=== PATIENT | female | born 1945 | race Caucasian/White ===

== ENCOUNTER → 2023-08-21 11:00 | Outpatient (REF) | payer MEDICARE, BC, SELFPAY | LOC: HWRAD 11:00 | PROVIDERS: ATTENDING PHYSICIAN Nurse Practitioner Adult Health; FAMILY PHYSICIAN Internal Medicine | DX: J47.9 Bronchiectasis, uncomplicated (principal) | CPT/HCPCS: 71250 ==

== ENCOUNTER 2024-04-27 13:09 | Inpatient (IN) | payer MEDICARE, BC, SELFPAY ==
[2024-04-27] VITALS (11 sets, daily range): BP systolic 118–152; BP diastolic 52–68; BMI 32.9
--- NOTE | 2024-04-27 08:16 | ED.GENMED ---
History of Present Illness
General
Chief Complaint: Fall
Time Seen by Provider: 04/27/24 08:15
History of Present Illness
History of Present Illness:
TIME OF INITIAL ENCOUNTER:
HPI: Patient came in by ambulance.
EXAM:
NUMBER AND COMPLEXITY OF PROBLEMS ADDRESSED AT THE ENCOUNTER
� Chronic conditions affecting care: CAD/SD, asthma, hypothyroidism, anxiety/depression
� Acute Exacerbation and/or Progression of Chronic Illness:
� Differential Diagnosis includes:
AMOUNT AND/OR COMPLEXITY OF DATA TO BE REVIEWED AND ANALYZED
� I performed an independent evaluation of and my interpretation is:
EKG:
CT:
X-rays:
Laboratory Studies:
Other:
� Review of other/old records:
� Clinical information was obtained by an independent historian:
� Prescriptions/Medications Considered but not given:
� Further testing considered but not performed:
RISK OF COMPLICATIONS AND/OR MORBIDITY OR MORTALITY OF PATIENT MANAGEMENT
� Social determinants of health affecting care:
� Discussion with other providers:
� Escalation of care including admission/observation vs risk of discharge considered:
ANY OTHER UPDATES:
Past History
Past History
ED Past Medical History: None
ED Past Surgical History: None
Social History
Tobacco: Non-smoker
Alcohol: None
Drug: None
Personal:
Living: with family
Employment: Retired
Family History
Family History: Other
ED Attending Note
-
Portions of this chart may have been created with voice recognition software.� Occasional wrong word or��sound alike� substitutions may have occurred due to the inherent limitations of voice recognition software.
Discharge Plan
Departure
Prescriptions:
No Action
venlafaxine 75 MG capsule,extended release 24hr
75 mg PO DAILY
cetirizine 10 MG tablet
10 mg PO HS
calcium carbonate 600 MG tablet
600 mg PO DAILY@1500
alprazolam 0.25 MG tablet
0.25 mg PO DAILYPRN PRN (Reason: anxiety)
tacrolimus [Protopic] 100 GM ointment
100 gm transdermal DAILY
Patient Comments:
applies to face daily for rosacea
aspirin 81 MG tablet,chewable
81 mg PO DAILY
montelukast 10 MG tablet
10 mg PO HS
levothyroxine 200 MCG tablet
200 mcg PO DAILY
fluticasone propionate 1 SPRAY spray,suspension
1 spray intranasal DAILY
metronidazole 1 APPLIC gel
1 applic topical DAILY
Patient Comments:
apply to face daily for rosacea
fluticasone propionate [Flovent HFA] 1 PUFF HFA aerosol inhaler
2 puff inhalation DAILY
cyclosporine [Restasis] 10 DROPS dropperette
1 drp ophthalmic (eye) BID
eszopiclone [Lunesta] 3 MG tablet
3 mg PO HS
ipratropium bromide [Atrovent HFA] 1 PUFF HFA aerosol inhaler
1 puff inhalation DAILYPRN PRN (Reason: wheezing, dyspnea)
cholecalciferol (vitamin D3) 2,000 UNIT tablet
2,000 unit PO DAILY@1500
qbvqbbvuuspu-wgxv-ovapd acid [Centrum Women] 1 EACH tablet
1 ea PO DAILY
omega 0-uln-tfd-fish oil [Fish Oil] 1 EACH capsule
1 ea PO DAILY@1500
vit C,D-Dc-riczh-lutein-zeaxan [PreserVision AREDS-2] 1 EACH capsule
1 ea PO BID
guaifenesin [Mucus Relief ER] 600 MG tablet extended release 12hr
600 mg PO Q12H
eszopiclone [Lunesta] 3 MG tablet
3 mg PO PRN PRN (Reason: sleep)
docusate sodium [Colace] 100 MG capsule
100 mg PO TID
atorvastatin 80 MG tablet
80 mg PO QPM Qty: 30 3RF
metoprolol succinate 25 MG tablet extended release 24 hr
25 mg PO DAILY Qty: 30 3RF
lisinopril 2.5 MG tablet
2.5 mg PO DAILY Qty: 30 3RF
ticagrelor [Brilinta] 90 MG tablet
90 mg PO BID Qty: 60 3RF
esomeprazole magnesium [Nexium] 40 MG capsule,delayed release(DR/EC)
40 mg PO DAILY Qty: 1 0RF
Discharge Date and Time
Print Language: TURKMEN
--- NOTE | 2024-04-27 08:25 | ED.GENMED ---
History of Present Illness
<Julia Pepe PA-C - Last Filed: 04/27/24 11:39>
General
Chief Complaint: Fall
Source: patient and ambulance crew
Time Seen by Provider: 04/27/24 08:15
History of Present Illness
History of Present Illness:
79yoF with a history of coronary artery disease s/p PCI, type 2 diabetes, hypertension, hyperlipidemia, and hypothyroidism presenting via EMS for evaluation after a fall. Patient was reportedly being over to try to change her depends when she fell.
She was unable to get up after the fall and was laying prone for about 6 hours before woke up and called EMS. Patient has no complaints at this time and denies any pain. She is currently taking doxycycline for bronchitis. She reports having
an ongoing cough for about 3 months. She uses a cane for ambulation and lives at home with . This is the 3rd time in the past 2 weeks that EMS has been called due to a fall. Patient also had a fall last night but she was not transported to
the hospital.
Past History
<Julia Pepe PA-C - Last Filed: 04/27/24 11:39>
Past History
ED Past Medical History: None
ED Past Surgical History: None
Social History
Tobacco: Non-smoker
Alcohol: None
Drug: None
Personal:
Living: with family
Employment: Retired
Family History
Family History: Other
Phy Exam
<Julia Pepe PA-C - Last Filed: 04/27/24 11:39>
General Physical Exam
General Presentation: no apparent distress
General age: appears stated age
General Skin: warm and dry
General Habitus: normal
General Mental: alert
General Hydration: dry mucous membranes
ENT Exam
ENT Exam: normocephalic
Additional ENT: Erythema/mild skin breakdown noted to bilateral cheeks
Eye Exam
Eye Exam: PERRL
Cardiovascular Exam
Cardiovascular Exam: regular rate/rhythm and no murmur
Pulmonary Exam
Pulmonary Exam: no respiratory distress and other (Rales noted to R lung base)
Gastrointestinal Exam
Gastrointestinal Exam: non tender, soft and non distended
Neurological Exam
Neurological Exam: alert and other (Oriented to person, place, and time.)
Alise Coma Scale
Eye Opening: Spontaneous
Verbal Response: Oriented
Motor Response: Obeys Commands
GCS Total Score: 15
Musculoskeletal Exam
Musculoskeletal Exam: other (Areas of ecchymosis noted to bilateral lower legs. There is a localized area of blanchable erythema to the anterior R thigh consistent with mild pressure wound.)
Skin Exam
Skin Exam: warm/dry and other (Extremities cool to touch. 2+ DP pulses bilaterally.)
Psychiatric Exam
Psychiatric Exam: normal mood/affect
<Paulo Foley DO - Last Filed: 04/27/24 08:45>
Alise Coma Scale
GCS Total Score: 15
Course
<Julia Pepe PA-C - Last Filed: 04/27/24 11:39>
Orders/Labs/Results
Orders:
Orders
04/27/24 08:17
Electrocardiogram (*1) Urgent
Reason for Study: Fatigue / Weakness
EKG- Treatment ONCE
04/27/24 08:23
CT Cervical Spine W/o Iv Contr Urgent
Comment:
Reason For Exam: unwitnessed fall
04/27/24 08:24
CT Head W/o Iv Contrast Urgent
Comment:
Reason For Exam: unwitnessed fall
CR Chest - 2 Views Urgent
Comment:
Reason For Exam: Cough, being treated for bronchitis
04/27/24 08:31
CR Femur - Left Min 2 Vw Urgent
Comment:
Reason For Exam: leg pain, fall
Pelvis, 1 or 2 Views CR [CR Pelvis - 1 Or 2 Views ] Urgent
Comment:
Reason For Exam: L hip pain
04/27/24 08:39
0.9% Sodium Chloride 500 ml [Nss] 500 ml IV BOLUS
04/27/24 08:47
COVID-19 Antigen Urgent
Source: Nasal Swab
Complete Blood Count/With Diff Urgent
Troponin I Urgent
Influenza A+B Rapid Molecular Urgent
JONAH Source: Nasal Swab
Specimen Description:
04/27/24 09:25
Comprehensive Metabolic Panel Urgent
Creatine Phosphokinase Urgent
04/27/24 09:45
Influenza A+B Rapid Molecular Routine
JONAH Source: [facility]
Specimen Description:
04/27/24 09:53
Urinalysis Reflex To Culture Urgent
Date Specimen was Collected: 04/27/24
Time Specimen was Collected: 09:47
Urine Microscopic Reflex Cult Urgent
Urine Culture Urgent
JONAH Source: U
Specimen Description:
Date Specimen was Collected: 04/27/24
Time Specimen was Collected: 09:47
04/27/24 10:23
Lactate Level [Lactic Acid] Urgent
Blood Culture Q30M
JONAH Source: Blood/Venous
Specimen Description:
04/27/24 10:27
Blood Culture Q30M
JONAH Source: Blood/Venous
Specimen Description:
04/27/24 10:40
CefTRIAXone [Rocephin] 2,000 mg IV NOW STA
04/27/24 10:58
Sterile Water [Sterile Water For Injection] 10 ml .ROUTE .STK-MED ONE
Abnormal Lab Results
04/27/24 04/27/24 04/27/24
08:47 09:25 09:53
WBC 31.8 H 10^3/uL
(4.8-10.8)
MCHC 31.4 L g/dL
(33.0-37.0)
Abs Immat Gran (auto) 0.6 H 10^3/uL
(0-0.05)
Absolute Neuts (auto) 28.5 H 10^3/uL
(1.4-6.5)
Absolute Monos (auto) 1.3 H 10^3/uL
(0.1-0.6)
Immature Gran % 1.8 H %
(0-0.5)
Neutrophils % 89.6 H %
(42.2-75.2)
Lymphocytes % 4.2 L %
(20.5-51.1)
Carbon Dioxide 21 L mmol/L
(22-30)
BUN 28 H mg/dl
(7-17)
Creatinine 1.2 H mg/dL
(0.6-1.0)
Glucose 140 H mg/dl
(70-99)
AST 49 H U/L
(14-36)
ALT 48 H U/L
(0-35)
Alkaline Phosphatase 167 H U/L
(38-126)
Creatine Kinase 437 H U/L
(30-135)
Total Protein 6.0 L g/dl
(6.3-8.2)
Albumin 2.7 L g/dl
(3.5-5.0)
Ur Occult Blood Reflex 4+ A
(Negative)
Urine RBC 7-10 A /HPF
(0-2)
Urine Bacteria (Reflex) Moderate A
(Negative)
Urine Albumin (Reflex) 1+ A
(Neg - Trace)
04/27/24 08:47
04/27/24 09:25
Vital Signs
Initial and Last Documented VS:
Initial Vital Signs
Pulse Resp BP Pulse Ox
81 18 121/68 95
12/23/24 08:16 04/27/24 08:16 04/27/24 08:16 04/27/24 08:16
Last Documented Vital Signs
Temp Pulse Resp BP Pulse Ox
97.3 F 75 21 121/68 95
04/27/24 08:59 04/27/24 08:45 04/27/24 08:45 04/27/24 08:16 04/27/24 08:30
<Paulo Chava Foley, DO - Last Filed: 04/27/24 08:45>
Orders/Labs/Results
Orders:
Orders
04/27/24 08:17
Electrocardiogram (*1) Urgent
Reason for Study: Fatigue / Weakness
EKG- Treatment ONCE
04/27/24 08:23
CT Cervical Spine W/o Iv Contr Urgent
Comment:
Reason For Exam: unwitnessed fall
04/27/24 08:24
CT Head W/o Iv Contrast Urgent
Comment:
Reason For Exam: unwitnessed fall
CR Chest - 2 Views Urgent
Comment:
Reason For Exam: Cough, being treated for bronchitis
04/27/24 08:31
CR Femur - Left Min 2 Vw Urgent
Comment:
Reason For Exam: leg pain, fall
Pelvis, 1 or 2 Views CR [CR Pelvis - 1 Or 2 Views ] Urgent
Comment:
Reason For Exam: L hip pain
04/27/24 08:39
0.9% Sodium Chloride 500 ml [Nss] 500 ml IV BOLUS
04/27/24 08:47
COVID-19 Antigen Urgent
Source: Nasal Swab
Complete Blood Count/With Diff Urgent
Troponin I Urgent
Influenza A+B Rapid Molecular Urgent
JONAH Source: Nasal Swab
Specimen Description:
04/27/24 09:25
Comprehensive Metabolic Panel Urgent
Creatine Phosphokinase Urgent
04/27/24 09:45
Influenza A+B Rapid Molecular Routine
JONAH Source: [facility]
Specimen Description:
04/27/24 09:53
Urinalysis Reflex To Culture Urgent
Date Specimen was Collected: 04/27/24
Time Specimen was Collected: 09:47
Urine Microscopic Reflex Cult Urgent
Urine Culture Urgent
JONAH Source: U
Specimen Description:
Date Specimen was Collected: 04/27/24
Time Specimen was Collected: 09:47
04/27/24 10:23
Lactate Level [Lactic Acid] Urgent
Blood Culture Q30M
JONAH Source: Blood/Venous
Specimen Description:
04/27/24 10:27
Blood Culture Q30M
JONAH Source: Blood/Venous
Specimen Description:
04/27/24 10:40
CefTRIAXone [Rocephin] 2,000 mg IV NOW STA
04/27/24 10:58
Sterile Water [Sterile Water For Injection] 10 ml .ROUTE .STK-MED ONE
Abnormal Lab Results
04/27/24 04/27/24 04/27/24
08:47 09:25 09:53
WBC 31.8 H 10^3/uL
(4.8-10.8)
MCHC 31.4 L g/dL
(33.0-37.0)
Abs Immat Gran (auto) 0.6 H 10^3/uL
(0-0.05)
Absolute Neuts (auto) 28.5 H 10^3/uL
(1.4-6.5)
Absolute Monos (auto) 1.3 H 10^3/uL
(0.1-0.6)
Immature Gran % 1.8 H %
(0-0.5)
Neutrophils % 89.6 H %
(42.2-75.2)
Lymphocytes % 4.2 L %
(20.5-51.1)
Carbon Dioxide 21 L mmol/L
(22-30)
BUN 28 H mg/dl
(7-17)
Creatinine 1.2 H mg/dL
(0.6-1.0)
Glucose 140 H mg/dl
(70-99)
AST 49 H U/L
(14-36)
ALT 48 H U/L
(0-35)
Alkaline Phosphatase 167 H U/L
(38-126)
Creatine Kinase 437 H U/L
(30-135)
Total Protein 6.0 L g/dl
(6.3-8.2)
Albumin 2.7 L g/dl
(3.5-5.0)
Ur Occult Blood Reflex 4+ A
(Negative)
Urine RBC 7-10 A /HPF
(0-2)
Urine Bacteria (Reflex) Moderate A
(Negative)
Urine Albumin (Reflex) 1+ A
(Neg - Trace)
04/27/24 08:47
04/27/24 09:25
Vital Signs
Initial and Last Documented VS:
Initial Vital Signs
Pulse Resp BP Pulse Ox
81 18 121/68 95
04/27/24 08:16 04/27/24 08:16 04/27/24 08:16 04/27/24 08:16
Last Documented Vital Signs
Temp Pulse Resp BP Pulse Ox
97.3 F 75 21 121/68 95
04/27/24 08:59 04/27/24 08:45 04/27/24 08:45 04/27/24 08:16 04/27/24 08:30
Martinlt;Julia Pepe PA-C - Last Filed: 04/27/24 11:39>
MDM/Problems Addressed
Differential Diagnosis Includes:
79yoF here after an unwitnessed fall. Fell in the middle of the night and was on the ground for 6 hours per report. In prone position on EMS arrival. Currently on abx for bronchitis. She is afebrile and hemodynamically stable. Mucous membranes are
dry. Erythema/mild skin breakdown noted to bilateral cheeks. Differential diagnosis includes but is not limited to: mechanical fall, ambulatory dysfunction, rhabdomyolysis, failure to thrive, dehydration, pneumonia
Initial ED plan: Check cardiac labs, CK, EKG, UA, COVID/flu swab, CXR, and CT head/cervical spine. Nursing staff reported L thigh pain with repositioning. Will check pelvis and L femur x-rays.
<Julia Pepe PA-C - Last Filed: 04/27/24 11:39>
*EKG
Interpreted by ED Provider?: Yes
EKG Intrepretation Date: 04/27/24
Heart Rate: 75
Rate: normal
Rhythm: sinus
[place]: normal axis
Interval: normal interval
QRS Pattern: normal QRS
Ischemia: non-specific ST changes (ST/T wave changes noted in anterior leads. Appears consistent with prior EKG in 2020.)
*Critical Care Note
Total Time (30-74mins, 75-104mins- exclusive of procedures): Not Applicable
<Julia Pepe PA-C - Last Filed: 04/27/24 11:39>
Update Note
Update Note:
Leukocytosis noted with a WBC of 31.8. Lactate and blood cultures added. Lactate WNL at 1.6. CK mildly elevated at 437. Creatinine 1.2. Mild transaminitis noted. COVID/flu negative. CT head/cervical spine negative for traumatic injuries. RUL
consolidation partially visualized on CT. CXR shows findings suspicious of a small to moderate partially loculated R pleural effusion with underlying atelectasis and pneumonia. IV Rocephin ordered. Patient admitted for fruther management.
ED Attending Note
<Julia Pepe PA-C - Last Filed: 04/27/24 11:39>
-
Portions of this chart may have been created with voice recognition software.� Occasional wrong word or��sound alike� substitutions may have occurred due to the inherent limitations of voice recognition software.
<Paulo Foley, DO - Last Filed: 04/27/24 08:45>
ED Attending Note
Patient seen and examined by attending physician: Yes
I performed the substantive portion of visit, reviewed & personally made and approve the management plan that is documented in note by myself or VINCENT.: Yes
ED Attending Note:
I evaluated patient at bedside. The patient comes in after a fall was on the ground in a prone position for about 6 hours. She does have some skin breakdown to the face but does have underlying rosacea. Will check imaging, labs, also check for
rhabdo.
Discharge Plan
Departure
Patient Disposition: Admit
Date of Disposition: 04/27/24
Time of Disposition: 11:35
Presentation/result/management discussed w/ accepting MD/DO: Hospitalist
Discharge Problem:
Unwitnessed fall, Pneumonia
Prescriptions:
No Action
venlafaxine 75 MG capsule,extended release 24hr
75 mg PO DAILY
cetirizine 10 MG tablet
10 mg PO HS
calcium carbonate 600 MG tablet
600 mg PO DAILY@1500
alprazolam 0.25 MG tablet
0.25 mg PO DAILYPRN PRN (Reason: anxiety)
tacrolimus [Protopic] 100 GM ointment
100 gm transdermal DAILY
Patient Comments:
applies to face daily for rosacea
aspirin 81 MG tablet,chewable
81 mg PO DAILY
montelukast 10 MG tablet
10 mg PO HS
levothyroxine 200 MCG tablet
200 mcg PO DAILY
fluticasone propionate 1 SPRAY spray,suspension
1 spray intranasal DAILY
metronidazole 1 APPLIC gel
1 applic topical DAILY
Patient Comments:
apply to face daily for rosacea
fluticasone propionate [Flovent HFA] 1 PUFF HFA aerosol inhaler
2 puff inhalation DAILY
cyclosporine [Restasis] 10 DROPS dropperette
1 drp ophthalmic (eye) BID
ipratropium bromide [Atrovent HFA] 1 PUFF HFA aerosol inhaler
1 puff inhalation DAILYPRN PRN (Reason: wheezing, dyspnea)
cholecalciferol (vitamin D3) 2,000 UNIT tablet
2,000 unit PO DAILY@1500
totbyejuanld-pmsj-fbwxh acid [Centrum Women] 1 EACH tablet
1 ea PO DAILY
omega 5-tyx-nhp-fish oil [Fish Oil] 1 EACH capsule
1 ea PO DAILY@1500
vit C,V-Hm-wimzw-lutein-zeaxan [PreserVision AREDS-2] 1 EACH capsule
1 ea PO BID
guaifenesin [Mucus Relief ER] 600 MG tablet extended release 12hr
600 mg PO Q12H
eszopiclone [Lunesta] 3 MG tablet
3 mg PO PRN PRN (Reason: sleep)
docusate sodium [Colace] 100 MG capsule
100 mg PO TID
atorvastatin 80 MG tablet
80 mg PO QPM Qty: 30 3RF
metoprolol succinate 25 MG tablet extended release 24 hr
25 mg PO DAILY Qty: 30 3RF
lisinopril 2.5 MG tablet
2.5 mg PO DAILY Qty: 30 3RF
ticagrelor [Brilinta] 90 MG tablet
90 mg PO BID Qty: 60 3RF
esomeprazole magnesium [Nexium] 40 MG capsule,delayed release(DR/EC)
40 mg PO DAILY Qty: 1 0RF
Referrals:
Ann-Marie Razo MD [Family Provider] -
Interventions
Interventions:
*General Assessment Last Done: 04/27/24 08:16
*Neglect/Abuse Screening Last Done: 04/27/24 08:16
*ED COVID-19 Vaccine History Last Done: 04/27/24 08:16
ED-Musculoskeletal Assessment Last Done: 04/27/24 08:16
ED- Neurological Assessment Last Done: 04/27/24 08:16
ED-Skin Assessment Last Done: 04/27/24 08:16
Discharge Date and Time
Print Language: MEXICAN
[2024-04-27] MEDS: NSS 500 IV (08:49)
[2024-04-27 09:16] LABS: COVID-19 Antigen Negative (Negative)
[2024-04-27 09:28] LABS: Troponin I < 0.012 ng/ml
[2024-04-27 09:53] LABS: ALT (SGPT) 48 U/L (0-35); AST (SGOT) 49 U/L (14-36); Albumin 2.7 g/dl (3.5-5.0); Alkaline Phosphatase 167 U/L (38-126); Blood Urea Nitrogen 28 mg/dl (7-17); Calcium 9.1 mg/dl (8.4-10.2); Carbon Dioxide 21 mmol/L (22-30); Chloride 105 mmol/L (98-107); Creatine Phosphokinase 437 U/L (30-135); Estimated Creatinine Clearance 37 ml/min; Glucose 140 mg/dl (70-99); Potassium 3.8 mmol/L (3.5-5.1); Sodium 136 mmol/L (135-145); Total Bilirubin 0.2 mg/dl (0.2-1.3); eGFR 46.62
[2024-04-27 09:55] LABS: % Basophils 0.3 % (0-2); % Eosinophils 0.1 % (0-6); % Immature Granulocytes 1.8 % (0-0.5); % Lymphocytes 4.2 % (20.5-51.1); % Neutrophils 89.6 % (42.2-75.2); Absolute Basophils 0.1 10^3/uL (0-0.2); Absolute Immature Granulocytes 0.6 10^3/uL (0-0.05); Absolute Lymphocytes 1.4 10^3/uL (1.2-3.4); Absolute Monocytes 1.3 10^3/uL (0.1-0.6); Absolute Neutrophils 28.5 10^3/uL (1.4-6.5); Hematocrit 38.5 % (37.0-47.0); Hemoglobin 12.1 g/dL (12.0-16.0); Mean Corp Hgb Conc. 31.4 g/dL (33.0-37.0); Mean Corpuscular Hgb 28.6 pg (27.0-31.0); Nucleated Red Blood Cells % 0 %; Red Blood Cell Count 4.23 10^6/uL (4.20-5.40); Red Cell Dist. Width 14.4 % (11.5-14.5); White Blood Cell Count 31.8 10^3/uL (4.8-10.8)
[2024-04-27 10:03] LABS: Urine Albumin 1+ (Neg - Trace); Urine Bilirubin Negative (Negative); Urine Character Slightly Cloudy (Clear); Urine Color Yellow; Urine Glucose Negative (Negative); Urine Ketone Negative (Negative); Urine Leukocyte Negative (Negative); Urine Nitrite Negative (Negative); Urine Occult Blood 4+ (Negative); Urine Specific Gravity 1.015 (<1.030); Urine Urobilinogen Negative (Neg - 1+)
[2024-04-27 10:16] LABS: Urine Bacteria Moderate (Negative); Urine White Cell 0-2 /HPF (0-5)
[2024-04-27] MEDS: ROCEPHIN 2000 MG IV (10:59)
[2024-04-27 11:08] LABS: Lactic Acid 1.6 mmol/L (0.7-2.0)
--- NOTE | 2024-04-27 13:00 | HPS.HSE ---
Family Physician
-
Family Physician: Ann-Marie Razo
Chief Complaint
-
Cough, weakness, falls
History of Present Illness
79-year-old female here complaining of 3 falls over the past week, 3 months of coughing, generalized weakness.
Reportedly was bending over trying to change her depends when she fell forward. Unable to get up for at least 6 hours when her finally called EMS.
Also fell last night but did not seek help.
Ambulates with a cane at home.
Just started a course of doxycycline 2 days ago for bronchitis.
Medical History
Past Medical History
Past Medical History: Reports Other
Additional Past Medical History:
CAD
Essential hypertension
DM2
Hypothyroidism
Hyperlipidemia
Mild intermittent asthma
Allergic rhinitis
Anxiety disorder
GERD
Rosacea
Skin cancer
Past Surgical History: Reports Other
Additional Past Surgical History:
Skin cancer resection
Social History
Tobacco: Non-smoker
Alcohol: None
Drug: None
Personal:
Living: With Family
Family History
Family History: Not pertinent
Allergies / Home Medications
Allergies reflects when Allergies were last updated in [facility].
Home Medications with original date entered in [facility]
Allergy/Medication List:
Allergies
Allergy/AdvReac Type Severity Reaction Status Date / Time
Sulfa (Sulfonamide Allergy Rash Verified 05/29/19 14:30
Antibiotics)
Home Medications
alprazolam 0.25 mg tablet 0.25 mg PO DAILYPRN PRN anxiety 05/29/19
aspirin 81 mg chewable tablet 81 mg PO DAILY 05/29/19
cholecalciferol (vitamin D3) 50 mcg (2,000 unit) tablet 2,000 unit PO DAILY@1500 05/29/19
eszopiclone 3 mg tablet (Lunesta) 3 mg PO HSPRN PRN sleep 05/29/19
fluticasone propionate 50 mcg/actuation nasal spray,suspension 1 spray intranasal DAILY 05/29/19
guaifenesin 600 mg tablet, extended release 12 hr (Mucus Relief ER) 600 mg PO Q12H 05/29/19
ipratropium bromide 17 mcg/actuation HFA aerosol inhaler (Atrovent HFA) 1 puff inhalation DAILYPRN PRN wheezing, dyspnea 05/29/19
levothyroxine 200 mcg tablet 200 mcg PO DAILY 05/29/19
montelukast 10 mg tablet 10 mg PO HS 05/29/19
multivitamin-ferrous fumarate-folic acid 18 mg-400 mcg tablet (Centrum Women) 1 ea PO DAILY 05/29/19
vit C 250 mg-vit E 90 mg-zinc 40 mg-copper 1 je-fvxxmq-hsgchn capsule (PreserVision AREDS-2) 1 ea PO BID 05/29/19
esomeprazole magnesium 40 mg capsule,delayed release (Nexium) 40 mg PO DAILY ##1 05/30/19
metoprolol succinate 25 mg tablet,extended release 24 hr 25 mg PO DAILY #30 tabs 05/30/19
benzonatate 100 mg capsule 100 mg PO TIDPRN PRN cough 04/27/24
cetirizine 10 mg tablet (Zyrtec) 10 mg PO DAILY 04/27/24
cyclosporine 0.05 % eye drops in a dropperette (Restasis) 1 drp BOTH EYES Q12H 04/27/24
doxycycline hyclate 100 mg capsule 100 mg PO BID 04/27/24
ibuprofen 600 mg tablet 600 mg PO Q6HPRN PRN moderate pain 04/27/24
losartan 100 mg tablet 100 mg PO DAILY 04/27/24
metformin 500 mg tablet,extended release 24 hr 500 mg PO BID 04/27/24
rosuvastatin 40 mg tablet (Crestor) 40 mg PO QPM 04/27/24
tirzepatide 2.5 mg/0.5 mL subcutaneous pen injector (Mounjaro) 2.5 mg SC TU 04/27/24
venlafaxine 150 mg capsule,extended release 24 hr (Effexor XR) 150 mg PO DAILY 04/27/24
Review of Systems
-
History Source: Patient and Family
A 12 point ROS was completed and negative except as noted: Yes
Respiratory: Reports Cough; Denies Trouble Breathing
Physical Exam
Vital Signs
Vital Signs
Temp Pulse Resp BP Pulse Ox
97.3 F 79 25 129/58 70
04/27/24 08:59 04/27/24 12:00 04/27/24 12:00 04/27/24 12:00 04/27/24 09:45
Physical Exam
General: Well Developed, Well Nourished, No Apparent Distress and Comfortable
HEENT: NormoCephalic and Anicteric; No Moist mucous membranes
Respiratory: Clear
Cardiac: S1/S2 and Regular Rhythm
Breast: Deferred by me
GI: Soft, Non Tender and Non Distended
Genito-urinary: Deferred by me
Musculoskeletal: No Clubbing, No Cyanosis and No Edema
Skin: Warm, Dry and Other (Hyperpigmentation of both cheeks, lower extremity bruising)
Neuro: AO x 3
Hematologic/Lymphatic: No Lymphadenopathy
Psych: Calm
Laboratory Results
-
04/27/24 08:47
04/27/24 09:25
Laboratory Results
Lactic Acid 1.6 mmol/L (0.7-2.0) 04/27/24 10:23
Total Bilirubin 0.2 mg/dl (0.2-1.3) 04/27/24 09:25
AST 49 U/L (14-36) H 04/27/24 09:25
ALT 48 U/L (0-35) H 04/27/24 09:25
Alkaline Phosphatase 167 U/L (38-126) H 04/27/24 09:25
Troponin I < 0.012 ng/ml 12/23/24 08:47
Impression/Plan
-
Community-acquired pneumonia -right upper lobe consolidation noted on CT. [facility], [facility]. Check cultures. She is not hypoxic.
Chest x-ray suggestive of moderate loculated right pleural effusion with underlying atelectasis and pneumonia.
Prior CT chest from August of this year suggested a 3 mm nodule in the anterior right upper lobe.
3-month cough is concerning for underlying pulmonary process.
Consult pulmonary.
Influenza and COVID-negative. Blood cultures sent.
Volume depletion -prerenal azotemia noted. IV fluids ordered. Recheck labs in the morning. Hold NSAIDs.
Mild traumatic rhabdomyolysis -down on the ground for quite some time before her found her. CPK 437. IV fluids as above.
Elevated transaminases -unclear etiology. Hold rosuvastatin.
Hypothyroidism -continue Synthroid. Check TSH.
DM2 without hyperglycemia -hold metformin. Check hemoglobin A1c. Low resistance NovoLog scale.
Essential hypertension -stable.
Hyperlipidemia -hold rosuvastatin given elevated LFTs.
Ambulatory dysfunction -anticipate SNF on discharge. Consult PT/OT.
Full code
Updated at the bedside.
--- NOTE | 2024-04-27 15:00 | CON.PUL ---
Consultation
Consultation Request
Date/Time Consultation Requested: 04/27/2024
Date/Time Consultation Performed: 04/27/2024
Requesting Provider: Dr. Arthur
Performing Provider: DR. Kelby Brooks
Reason for Consultation: Pleural effusion
Medical History
-
History of Present Illness:
79-year-old woman with past medical history significant for coronary artery disease, hypertension, type 2 diabetes, hypothyroidism, mild asthma, anxiety, who came to the hospital on 04/27/2024 complaining of falling to the ground 3 times in the last
past week, reports 3 months of coughing, generalized weakness.
Patient unfortunately fell at home and was not able to get up after 6 hours, called EMS.
Usually ambulates with a cane.
About 2 days ago started a course of doxycycline for possible bronchitis. Reports some improvement
She does report some discolored phlegm production without hemoptysis.
Denies any headache but she has been having some ambulatory issues as well as memory issues of unknown etiology.
found her in her room laying facedown after 6 hours. They sleep in separate rooms.
Past Medical History
Past Medical History: Other ( See assessment and plan section)
Social History
Tobacco: Non-smoker
Alcohol: None
Drug: None
Personal:
Living: With Family
Family History
Family History: Reviewed & Not Pertinent
Allergies / Home Medications
Allergies
Allergy/AdvReac Type Severity Reaction Status Date / Time
Sulfa (Sulfonamide Allergy Rash Verified 05/29/19 14:30
Antibiotics)
Home Medications
�Medication �Instructions �Recorded �Confirmed �Last Taken �Type
alprazolam 0.25 mg tablet 0.25 mg PO DAILYPRN PRN anxiety 05/29/19 04/27/24 Unknown History
aspirin 81 mg chewable tablet 81 mg PO DAILY 05/29/19 04/27/24 04/26/24 History
cholecalciferol (vitamin D3) 50 2,000 unit PO DAILY@1500 05/29/19 04/27/24 04/26/24 History
mcg (2,000 unit) tablet
eszopiclone 3 mg tablet (Lunesta) 3 mg PO HSPRN PRN sleep 05/29/19 04/27/24 Unknown History
fluticasone propionate 50 1 spray intranasal DAILY 05/29/19 04/27/24 05/29/19 08:00 History
mcg/actuation nasal
spray,suspension
guaifenesin 600 mg tablet, 600 mg PO Q12H 05/29/19 04/27/24 04/26/24 History
extended release 12 hr (Mucus
Relief ER)
ipratropium bromide 17 1 puff inhalation DAILYPRN PRN 05/29/19 04/27/24 Unknown History
mcg/actuation HFA aerosol inhaler wheezing, dyspnea
(Atrovent HFA)
levothyroxine 200 mcg tablet 200 mcg PO DAILY 05/29/19 04/27/24 04/26/24 History
montelukast 10 mg tablet 10 mg PO HS 05/29/19 04/27/24 04/26/24 History
multivitamin-ferrous 1 ea PO DAILY 05/29/19 04/27/24 04/26/24 History
fumarate-folic acid 18 mg-400 mcg
tablet (Centrum Women)
vit C 250 mg-vit E 90 mg-zinc 40 1 ea PO BID 05/29/19 04/27/24 04/26/24 History
mg-copper 1 [id number]
capsule (PreserVision AREDS-2)
esomeprazole magnesium 40 mg 40 mg PO DAILY ##1 05/30/19 04/27/24 04/26/24 Rx
capsule,delayed release (Nexium)
metoprolol succinate 25 mg 25 mg PO DAILY #30 tabs 05/30/19 04/27/24 04/26/24 Rx
tablet,extended release 24 hr
benzonatate 100 mg capsule 100 mg PO TIDPRN PRN cough 04/27/24 04/27/24 Unknown History
cetirizine 10 mg tablet (Zyrtec) 10 mg PO DAILY 04/27/24 04/27/24 04/26/24 History
cyclosporine 0.05 % eye drops in a 1 drp BOTH EYES Q12H 04/27/24 04/27/24 04/26/24 History
dropperette (Restasis)
doxycycline hyclate 100 mg capsule 100 mg PO BID 04/27/24 04/27/24 04/26/24 History
ibuprofen 600 mg tablet 600 mg PO Q6HPRN PRN moderate pain 04/27/24 04/27/24 Unknown History
losartan 100 mg tablet 100 mg PO DAILY 04/27/24 04/27/24 04/26/24 History
metformin 500 mg tablet,extended 500 mg PO BID 04/27/24 04/27/24 04/26/24 History
release 24 hr
rosuvastatin 40 mg tablet (Crestor) 40 mg PO QPM 04/27/24 04/27/24 04/26/24 History
tirzepatide 2.5 mg/0.5 mL 2.5 mg SC TU 04/27/24 04/27/24 04/21/24 History
subcutaneous pen injector
(Mounjaro)
venlafaxine 150 mg 150 mg PO DAILY 04/27/24 04/27/24 04/26/24 History
capsule,extended release 24 hr
(Effexor XR)
Review of Systems
-
History Source: Patient
All other systems: Negative unless noted
Vitals / Labs / Diagnostic Testing
Vital Signs
Temp Pulse Resp BP Pulse Ox
97.3 F 81 42 130/63 70
04/27/24 08:59 04/27/24 14:30 04/27/24 14:30 04/27/24 14:00 04/27/24 09:45
Lab Data
04/27/24 08:47
04/27/24 09:25
Microbiology
04/27/24 09:45 Nasal Swab Influenza Types A & B (STEVEN) - Final
Negative for Influenza A & B, NAAT
Negative results must be combined with clinical observations
and patient history.
Nucleic Acid Amplification test (NAAT)performed on the
[employer] ID NOW platform.
04/27/24 08:47 Nasal Swab Influenza Types A & B (STEVEN) - Final
Test repeatedly invalid.
Nucleic Acid Amplification test (NAAT)performed on the
[employer] ID NOW platform.
Diagnostic Testing:
Physical Exam
-
HEENT: Normocephalic
Cardiovascular: S1/S2 and Peripheral Edema (None)
Respiratory: Clear and Non-Labored Respirations
GI: Soft and Non Distended
Neurology: Awake, Alert and No Motor Deficits
Skin: Warm
General: Comfortable, Other (Able to speak in full sentences) and Other (Rosacea noted)
Assessment
-
79-year-old woman with past medical history noted, complains of 3 months of coughing. For the last several weeks has fallen several times. Last time patient was not able to stand up for 6 hours. She was brought in by for evaluation
Community-acquired pneumonia-right upper lobe consolidation/pleural effusion on CAT scan of the cervical spine.
Chest x-ray 04/27/2024: Suspected loculated right pleural effusion with possible underlying pneumonia.
No evidence for mass on CAT scan on the right upper lobe 08/2023-l there was apparently a benign-appearing 4 mm lung nodule, ess likely lung mass but cannot rule out 100%.
Leukocytosis
Chronic cough for the last 3 months-unclear etiology
Acute kidney injury-volume depletion
Mild rhabdo after fall
Conditions present prior admission:
Mild intermittent asthma
Singular/albuterol HFA as needed/low-dose Flovent
Follows up at our office Dr. Gore and PEGGY
Mild obstructive sleep apnea-intolerant to CPAP
Weight loss and dental appliance as well as positional therapy recommended
Mild bronchiectasis post pneumonia x 2? Per record
Chronic insomnia
Hypothyroidism
Type 2 diabetes-on Mounjaro
Allergic rhinitis
Anxiety
GERD
Prior skin cancer
3 mm lung nodule on the right upper lobe CAT scan 08/2023
Rosacea
Assessment and plan:
Clinical picture suggestive of pneumonia with leukocytosis and coughing.
States that she took 2 days of doxycycline in the outpatient and was helping.
Afebrile
Not requiring oxygen for mentation
-
Agree with antibiotics to cover for community-acquired pneumonia ceftriaxone/doxycycline
Will obtain ultrasound of the chest and if pleural effusion is amenable for thoracentesis will consult interventional radiology. Order has been placed.
Blood cultures
Sputum culture if able
Speech evaluation (order has been placed)-patient states that she has been having some memory issues. CT head negative for acute abnormalities. May need further evaluation.
She denies any significant swallowing problems or GERD.
-
It is encouraging that in August 2023 there was a tiny 4 mm right upper lobe lung nodule. Not highly suspicious.
Patient is a never smoker
Radiographic follow-up will be needed in the future to document resolution.
-
With history of asthma: Not bronchospastic on exam
Nebulizers as needed
Continue montelukast
Albuterol HFA as needed
Antitussives
-
Type 2 diabetes: Recently placed on Mounjaro due to increased hemoglobin A1c.
-
History of obstructive sleep apnea: Intolerant to CPAP
-
DVT prophylaxis heparin subcu
-
Will continue to follow
-
Dr. Brooks updated at the bedside 04/27/2024.
[2024-04-27 16:29] LABS: TSH 0.02 uIU/ml (0.47-4.68)
[2024-04-27] MEDS: NSS 1000 IV (16:44)
[2024-04-27] MEDS: VITAMIN D3 (cholecalciferol) 50 MCG PO (16:44)
[2024-04-27] MEDS: XANAX 0.25 MG PO (16:54)
[2024-04-27 17:46] LABS: Glucose - Point of Care 120 mg/dl (70-99)
[2024-04-27] MEDS: NOVOLOG FLEXPEN-LOW RESISTANCE SC (17:49)
[2024-04-27] MEDS: HEPARIN 5000 UNITS SC (20:29)
[2024-04-27] MEDS: RESTASIS 0.05% OPHTHALMIC EMULSION 1 DROPS BOTH EYES (20:29)
[2024-04-27] MEDS: VIBRAMYCIN 100 MG PO (20:29)
[2024-04-27] MEDS: MUCINEX 600 MG PO (20:29)
[2024-04-27 21:19] LABS: Glucose - Point of Care 156 mg/dl (70-99)
[2024-04-27] MEDS: TYLENOL 650 MG PO (21:40)
[2024-04-27] MEDS: SINGULAIR 10 MG PO (21:40)
[2024-04-28] MEDS: SYNTHROID 200 MCG PO (05:21)
[2024-04-28 06:00] VITALS: BMI 31.8
[2024-04-28 06:55] LABS: Hemoglobin 11.3 g/dL (12.0-16.0); Mean Corp Hgb Conc. 34.2 g/dL (33.0-37.0); Mean Corpuscular Hgb 29.2 pg (27.0-31.0); Mean Corpuscular Volume 85.3 fL (81.0-99.0); Mean Platelet Volume 9.1 fL (7.4-10.4); Platelet Count 338 10^3/uL (130-400); Red Blood Cell Count 3.87 10^6/uL (4.20-5.40); Red Cell Dist. Width 14.3 % (11.5-14.5); White Blood Cell Count 32.2 10^3/uL (4.8-10.8)
[2024-04-28 07:23] VITALS: BP 140/64
[2024-04-28 07:44] LABS: Glucose - Point of Care 148 mg/dl (70-99)
[2024-04-28 07:53] LABS: % Basophils 0.2 % (0-2); % Eosinophils 0.3 % (0-6); % Immature Granulocytes 0.9 % (0-0.5); % Monocytes 4.5 % (1.7-9.3); % Neutrophils 88.1 % (42.2-75.2); Absolute Basophils 0.1 10^3/uL (0-0.2); Absolute Eosinophils 0.1 10^3/uL (0-0.7); Absolute Immature Granulocytes 0.3 10^3/uL (0-0.05); Absolute Lymphocytes 1.9 10^3/uL (1.2-3.4); Absolute Monocytes 1.5 10^3/uL (0.1-0.6); Absolute Neutrophils 28.3 10^3/uL (1.4-6.5); Nucleated Red Blood Cells % 0 %
[2024-04-28 08:02] LABS: ALT (SGPT) 74 U/L (0-35); AST (SGOT) 93 U/L (14-36); Albumin 2.8 g/dl (3.5-5.0); Alkaline Phosphatase 200 U/L (38-126); Blood Urea Nitrogen 23 mg/dl (7-17); Calcium 9.3 mg/dl (8.4-10.2); Carbon Dioxide 19 mmol/L (22-30); Chloride 105 mmol/L (98-107); Estimated Creatinine Clearance 40 ml/min; Glucose 143 mg/dl (70-99); Potassium 3.4 mmol/L (3.5-5.1); Sodium 137 mmol/L (135-145); Total Bilirubin 0.4 mg/dl (0.2-1.3); Total Protein 6.3 g/dl (6.3-8.2); eGFR 51.75
[2024-04-28] MEDS: NOVOLOG FLEXPEN-LOW RESISTANCE SC (08:26)
[2024-04-28] MEDS: HEPARIN 5000 UNITS SC ×2 (08:39→20:26)
[2024-04-28] MEDS: ZYRTEC 10 MG PO (08:40)
[2024-04-28] MEDS: TOPROL XL 25 MG PO (08:40)
[2024-04-28] MEDS: EFFEXOR XR 150 MG PO (08:40)
[2024-04-28] MEDS: VIBRAMYCIN 100 MG PO ×2 (08:40→20:33)
[2024-04-28] MEDS: LOW STRENGTH ASPIRIN 81 MG PO (08:40)
[2024-04-28] MEDS: MUCINEX 600 MG PO ×2 (08:40→20:26)
[2024-04-28] MEDS: RESTASIS 0.05% OPHTHALMIC EMULSION 1 DROPS BOTH EYES ×2 (08:40→20:25)
[2024-04-28 08:41] LABS: Hepatitis C Antibody Negative (Negative)
--- NOTE | 2024-04-28 09:45 | PTOTSP ---
SPEECH THERAPY SWALLOW EVALUATION:
Patient exhibits grossly functional to mild oropharyngeal dysphagia, likely chronic related to weakness/deconditioning. Patient remains at risk for aspiration and related complications given tenuous respiratory/pulmonary status and history of
asthma/GERD. Patient currently with pneumonia. Not exhibiting any overt signs of aspiration at this time, though unable to exclude aspiration. Recommend continue Regular texture diet, thin liquids. Medications whole with liquid, one at a time.
Aspiration/GERD precautions including: Partial supervision/assistance; Reduce distractions; No talking while eating/drinking; Upright positioning; Small single sips/bites; Slow rate of intake; Take breaks for breathing; Do not eat when short of
breath; Monitor for signs of aspiration; D/c oral diet if any decline in mental/respiratory status. Oral care 3x/day. ST to follow, assess diet tolerance and modify as appropriate, and monitor CXR/labs and determine indication for instrumental
assessment of swallowing if appropriate. Discussed with patient.
RECOMMEND:
1) Regular texture diet, thin liquids
2) Medications whole with liquid, one at a time
3) Aspiration/GERD precautions including: Partial supervision/assistance; Reduce distractions; No talking while eating/drinking; Upright positioning; Small single sips/bites; Slow rate of intake; Take breaks for breathing; Do not eat when short of
breath; Monitor for signs of aspiration; D/c oral diet if any decline in mental/respiratory status
4) Oral care 3x/day
5) ST to follow and determine indication for instrumental assessment of swallowing if appropriate
--- NOTE | 2024-04-28 10:07 | CM ---
Pt seen bedside. Initial assessment completed. Per pt, she experienced 3 falls previously. Currently w/ pneumonia
Pt lives w/ spouse in a single story home-1 step to enter
Pt is independent w/ cane and walker. Pt has grab bars and a shower chair for additional support
Pt states she still drives but only locally. She drives to [employer], the grocery store and when she takes her grandchildren to school sometimes.
Pt denies SNF/VN/PT hx. Pt stated she did engage in OP therapy 10 years ago when she broke her ankle.
Address, point of contact and insurance verified
PCP: Dr. Razo
Pharmacy: [facility]
PT/OT to evaluate, will await recommendations
Plan: Await PT/OT recommendations for d/c planning
[2024-04-28 10:13] LABS: Glycohemoglobin (HgbA1c) 7.3 % (4.0-5.6)
[2024-04-28] MEDS: ROCEPHIN 2000 MG IV (10:19)
[2024-04-28] MEDS: STERILE WATER FOR INJECTION 20 ML IV (10:19)
[2024-04-28 11:05] VITALS: BP 140/69; BP 142/77; PULSE 96; O2SAT 90
[2024-04-28 11:08] VITALS: BP 140/69; BP 142/77; PULSE 97; O2SAT 91
[2024-04-28 11:43] LABS: Glucose - Point of Care 211 mg/dl (70-99)
--- NOTE | 2024-04-28 12:14 | W.PN.HOSP.TC ---
Addendum entered and electronically signed by Jean-Pierre Arthur DO 04/28/24 13:37:
Sepsis due to community-acquired pneumonia -present on admission.
Original Note:
Today's Communication/Plan
-
Thoracentesis
Continue antibiotics
Assessment / Plan
Assessment / Plan
Gen-AAOx3, NAD
HEENT-NC, AT, anicteric, clear oral mm
Neck-supple
CV-reg, no M, +S1/S2
Lungs-clear B/L
Abd-soft, NT, ND
Ext-no edema
Musculoskeletal-no cyanosis, clubbing
Skin-warm and dry
Neuro-grossly non-focal
Psych-calm, cooperative
Community-acquired pneumonia -right upper lobe consolidation noted on CT. Continue antibiotics. Check cultures. She is not hypoxic.
Chest x-ray suggestive of moderate loculated right pleural effusion with underlying atelectasis and pneumonia.
Prior CT chest from August of this year suggested a 3 mm nodule in the anterior right upper lobe.
3-month cough is concerning for underlying pulmonary process.
Influenza and COVID-negative. Blood cultures sent.
Appreciate pulmonary input.
Mild to moderate right pleural effusion -noted on chest ultrasound. IR consulted for thoracentesis.
Volume depletion -prerenal azotemia noted. IV fluids ordered. Creatinine trending down. Hold NSAIDs.
Mild traumatic rhabdomyolysis -down on the ground for quite some time before her found her. CPK 437. IV fluids as above.
Hypokalemia -will replete. Check magnesium.
Elevated transaminases -unclear etiology. Hold rosuvastatin.
Hypothyroidism -continue Synthroid. Check TSH.
DM2 without hyperglycemia -hold metformin. Hemoglobin A1c 7.3%. Low resistance NovoLog scale. Hold Mounjaro and metformin while in the hospital.
Essential hypertension -stable.
Hyperlipidemia -hold rosuvastatin given elevated LFTs.
Ambulatory dysfunction -anticipate SNF on discharge. Continue PT/OT.
Full code
Dispo -will need SNF when medically stable.
Updated at the bedside.
Anticipated Discharge: 24 - 48 hours
Subjective/Interval History
-
Date of Service: April 28, 2024
Patient seen and examined. No complaints. Confused, thinks she is at home.
Objective Data
-
Labs:
Laboratory Results
04/28/24
06:39
WBC 32.2 H
Hgb 11.3 L
Hct 33.0 L
Plt Count 338
Sodium 137
Potassium 3.4 L
Chloride 105
Carbon Dioxide 19 L
BUN 23 H
Creatinine 1.1 H
Glucose 143 H
Calcium 9.3
Total Bilirubin 0.4
AST 93 H
ALT 74 H
Alkaline Phosphatase 200 H
Vital Signs:
Vital Signs
Temp Pulse Resp BP Pulse Ox
97.4 F 84 16 140/64 91
04/28/24 07:23 04/28/24 08:40 04/28/24 07:23 04/28/24 08:40 04/28/24 07:23
I&O
04/27/24 04/28/24 04/29/24
06:59 06:59 06:59
Intake Total 120 / 120
Output Total 550 / 550
Balance -430 / -430
Review of Systems
-
History Source: Patient
All other systems: Reviewed and negative
[2024-04-28 12:50] VITALS: BP 147/76; BP_SYST 90
--- NOTE | 2024-04-28 13:05 | W.PN.PUL3 ---
Today's Communication / Plan
-
Continue current antibiotics for now
Thoracentesis
Follow culture
Assessment
-
79-year-old woman with past medical history noted, complains of 3 months of coughing. For the last several weeks has fallen several times. Last time patient was not able to stand up for 6 hours. She was brought in by for evaluation
Community-acquired pneumonia-right upper lobe consolidation/pleural effusion on CAT scan of the cervical spine.
Chest x-ray 04/27/2024: Suspected loculated right pleural effusion with possible underlying pneumonia.
No evidence for mass on CAT scan on the right upper lobe 08/2023-l there was apparently a benign-appearing 4 mm lung nodule, ess likely lung mass but cannot rule out 100%.
Leukocytosis
Chronic cough for the last 3 months-unclear etiology
Acute kidney injury-volume depletion
Mild rhabdo after fall
Conditions present prior admission:
Mild intermittent asthma
Singular/albuterol HFA as needed/low-dose Flovent
Follows up at our office Dr. Gore and PEGGY
Mild obstructive sleep apnea-intolerant to CPAP
Weight loss and dental appliance as well as positional therapy recommended
Mild bronchiectasis post pneumonia x 2? Per record
Chronic insomnia
Hypothyroidism
Type 2 diabetes-on Mounjaro
Allergic rhinitis
Anxiety
GERD
Prior skin cancer
3 mm lung nodule on the right upper lobe CAT scan 08/2023
Rosacea
Assessment and plan:
Clinical picture suggestive of pneumonia with leukocytosis and coughing.
States that she took 2 days of doxycycline in the outpatient and was helping.
Afebrile remains afebrile, leukocytosis elevated at 32,000.
Not requiring oxygen for mentation
-
Agree with antibiotics to cover for community-acquired pneumonia ceftriaxone/doxycycline-may need to cover anaerobes if there is empyema.
Right-sided ultrasound noted: Mild to moderate pleural effusion.
Consulted Dr. Burris from to perform thoracentesis today 04/28/2024.
Orders placed to send for: Cell count, cultures, cytology, LDH, total protein etc.
Blood cultures-Pending
Sputum culture if able-pending.
Eventual CT chest once thoracentesis performed in the next 24 to 48 hours.
Speech evaluation-patient states that she has been having some memory issues. CT head negative for acute abnormalities.
Correspondence reviewed. Regular texture diet with thin liquids. Aspiration precautions recommended. No evidence for overt aspiration.
She denies any significant swallowing problems or GERD.
-
It is encouraging that in August 2023 there was a tiny 4 mm right upper lobe lung nodule. Not highly suspicious.
Patient is a never smoker
Radiographic follow-up will be needed in the future to document resolution.
-
With history of asthma: Not bronchospastic on exam
Nebulizers as needed
Continue montelukast
Albuterol HFA as needed
Antitussives
-
Type 2 diabetes: Recently placed on Mounjaro due to increased hemoglobin A1c.
-
History of obstructive sleep apnea: Intolerant to CPAP
-
DVT prophylaxis heparin subcu
-
Will continue to follow
-
Dr. Brooks updated at the bedside 04/27/2024.
-
She will follow-up in our office in the next 2 to 3 weeks after discharge. Last time saw Mirella WOODS.
Subjective Data
-
Date of Service:
Date of Service: April 28, 2024
Chief Complaint: Pulmonary Follow Up (Pneumonia/pleural effusion)
Subjective:
No new complaints
Intermittent coughing without hemoptysis
Denies any chest pain
Review of Systems
Cardiopulmonary: Dyspnea (none at rest)
GI: Abdominal Pain (n) and Nausea
Neuro: Headache (n)
Objective Data
Data Reviewed
Vital Signs / I&O / Oxygen:
Vital Signs
Temp Pulse Resp BP Pulse Ox
97.4 F 84 16 140/64 91
04/28/24 07:23 04/28/24 08:40 04/28/24 07:23 04/28/24 08:40 04/28/24 07:23
Intake and Output
04/27/24 04/28/24 04/29/24
06:59 06:59 06:59
Intake Total 120 / 120
Output Total 550 / 550
Balance -430 / -430
SaO2 91
Physical Exam
General: Comfortable
HEENT: Normocephalic
Cardiovascular: S1-S2
Respiratory: Non-Labored Respirations
GI: Soft and Non Distended
Neurology: Awake, Alert and Oriented
Skin: Other (Rosacea)
Labs/Micro/Reports
Lab Data
04/28/24 06:39
04/28/24 06:39
Microbiology
04/27/24 10:23 Blood/Venous Blood Culture - Preliminary
No Growth in 24 hours- Final report to follow
04/27/24 10:27 Blood/Venous Blood Culture - Preliminary
No Growth in 24 hours- Final report to follow
04/27/24 09:53 Urine Urine Culture - Final
NO GROWTH
04/27/24 09:45 Nasal Swab Influenza Types A & B (STEVEN) - Final
Negative for Influenza A & B, NAAT
Negative results must be combined with clinical observations
and patient history.
Nucleic Acid Amplification test (NAAT)performed on the
[employer] NOW platform.
04/27/24 08:47 Nasal Swab Influenza Types A & B (STEVEN) - Final
Test repeatedly invalid.
Nucleic Acid Amplification test (NAAT)performed on the
[employer] NOW platform.
--- NOTE | 2024-04-28 13:15 | PN.CDI ---
CDI
- -
CDI:
Physician Documentation Request
Admit Date: 04/27/24 13:09
Dear Doctor Jerson,
Clinical Indicators:
Patient admitted with community acquired pneumonia; outpatient course of doxycycline started 2 days prior to admission.
WBC on admission:
04/27/24
08:47
WBC 31.8 H
RR trend on admission:
04/27/24
08:30 04/27/24
09:00 04/27/24
09:30
Resp Rate 25 29 29
04/27/24
10:00 04/27/24
10:30 04/27/24
11:00
Resp Rate 30 29 27
Please clarify which of the following most accurately describes the status of the patient's infection:
Sepsis, POA
- Systemic manifestations of infection, with 2 or more SIRS criteria which include:
- Fever >100.4 degrees F or hypothermia < 96.8 degrees F
- Leukocytosis - WBC > 12,000 or leukopenia - WBC < 4,000 or > 10% bands
- Tachycardia > 90 beats per minute
- Tachypnea - RR > 20 breaths per minute or PaCO2 , 32mmHg
Source: Merck Manual 2013
Pneumonia Only, Without Systemic Illness
Other
Use of terms such as suspected, likely, concern for, or probable (associated with a specific diagnosis that is being evaluated, monitored, or treated as if it exists) are acceptable and can be coded in the inpatient setting, when documented at the
time of discharge.
Thank you,
Lanette Olivares RN
CDI Specialist
available via tiger text
Please use your independent medical judgment in providing your response.
[2024-04-28] MEDS: NOVOLOG FLEXPEN-LOW RESISTANCE 2 UNITS SC (13:41)
[2024-04-28] MEDS: KCL 40 MEQ PO (13:41)
[2024-04-28] MEDS: VITAMIN D3 (cholecalciferol) 50 MCG PO (13:43)
[2024-04-28 14:46] LABS: LDH 267 U/L (120-246); Magnesium 2.2 mg/dl (1.6-2.3)
--- NOTE | 2024-04-28 14:53 | W.PN.UPDATE ---
Update Note
Progress Note Update
Pleural effusion too small for thoracentesis. Will obtain CT chest for further evaluation now.
[2024-04-28 16:58] LABS: Glucose - Point of Care 164 mg/dl (70-99)
[2024-04-28] MEDS: NOVOLOG FLEXPEN-LOW RESISTANCE 1 UNITS SC (18:05)
[2024-04-28 21:32] LABS: Glucose - Point of Care 169 mg/dl (70-99)
[2024-04-28] MEDS: XANAX 0.25 MG PO (21:53)
[2024-04-28] MEDS: SINGULAIR 10 MG PO (21:53)
[2024-04-28 23:14] VITALS: BP 137/66
[2024-04-29 06:00] VITALS: BMI 31.6
--- NOTE | 2024-04-29 07:00 | PTCARENOTE ---
Pt able to state her age, , where she currently is, and that it is [place] but repeatedly asking about a baby. Pt reoriented that there is no baby with her. Pt able to tell this RN information that was relayed to her by this RN the night prior.
This RN walked into pts room to find pt's IV was out. Pt stated 'I didnt think I needed that anymore'. Pt educated on need for IV team. IV team notified about pt having IV abx due at 1000. Bed alarm in place, call heaton within reach, and plan of care
ongoing.
[2024-04-29 07:25] LABS: ALT (SGPT) 105 U/L (0-35); AST (SGOT) 125 U/L (14-36); Albumin 2.5 g/dl (3.5-5.0); Alkaline Phosphatase 179 U/L (38-126); Blood Urea Nitrogen 23 mg/dl (7-17); Calcium 8.8 mg/dl (8.4-10.2); Carbon Dioxide 20 mmol/L (22-30); Chloride 106 mmol/L (98-107); Estimated Creatinine Clearance 49 ml/min; Glucose 123 mg/dl (70-99); Potassium 3.2 mmol/L (3.5-5.1); Sodium 136 mmol/L (135-145); Total Bilirubin 0.4 mg/dl (0.2-1.3); Total Protein 5.8 g/dl (6.3-8.2); eGFR > 60.00
[2024-04-29 07:30] VITALS: BP 148/67
[2024-04-29 07:39] LABS: Hematocrit 29.9 % (37.0-47.0); Hemoglobin 9.9 g/dL (12.0-16.0); Mean Corp Hgb Conc. 33.1 g/dL (33.0-37.0); Mean Corpuscular Hgb 28.3 pg (27.0-31.0); Mean Corpuscular Volume 85.4 fL (81.0-99.0); Platelet Count 320 10^3/uL (130-400); Red Cell Dist. Width 14.6 % (11.5-14.5); White Blood Cell Count 26.5 10^3/uL (4.8-10.8)
[2024-04-29 07:51] LABS: Glucose - Point of Care 125 mg/dl (70-99)
[2024-04-29] MEDS: MUCINEX 600 MG PO ×2 (08:38→20:37)
[2024-04-29] MEDS: ZYRTEC 10 MG PO (08:38)
[2024-04-29] MEDS: LOW STRENGTH ASPIRIN 81 MG PO (08:38)
[2024-04-29] MEDS: HEPARIN 5000 UNITS SC ×2 (08:38→20:38)
[2024-04-29] MEDS: RESTASIS 0.05% OPHTHALMIC EMULSION 1 DROPS BOTH EYES ×2 (08:38→20:37)
[2024-04-29] MEDS: TOPROL XL 25 MG PO (08:38)
[2024-04-29] MEDS: EFFEXOR XR 150 MG PO (08:38)
[2024-04-29] MEDS: VIBRAMYCIN 100 MG PO ×2 (08:39→20:38)
[2024-04-29] MEDS: XANAX 0.25 MG PO (08:39)
[2024-04-29] MEDS: SYNTHROID 200 MCG PO (08:39)
[2024-04-29] MEDS: NOVOLOG FLEXPEN-LOW RESISTANCE SC ×2 (08:39→17:15)
[2024-04-29 08:51] LABS: % Basophils 0.3 % (0-2); % Eosinophils 0.5 % (0-6); % Immature Granulocytes 1.1 % (0-0.5); % Lymphocytes 11.2 % (20.5-51.1); % Monocytes 5.5 % (1.7-9.3); % Neutrophils 81.4 % (42.2-75.2); Absolute Basophils 0.1 10^3/uL (0-0.2); Absolute Eosinophils 0.1 10^3/uL (0-0.7); Absolute Immature Granulocytes 0.3 10^3/uL (0-0.05); Absolute Monocytes 1.5 10^3/uL (0.1-0.6); Absolute Neutrophils 21.6 10^3/uL (1.4-6.5); Nucleated Red Blood Cells % 0 %
[2024-04-29 09:25] LABS: Magnesium 2.2 mg/dl (1.6-2.3)
[2024-04-29] MEDS: STERILE WATER FOR INJECTION 20 ML IV (09:38)
[2024-04-29] MEDS: KCL 40 MEQ PO (09:38)
[2024-04-29] MEDS: ROCEPHIN 2000 MG IV (09:38)
--- NOTE | 2024-04-29 10:09 | W.PN.HOSP.TC ---
Today's Communication/Plan
-
Replete potassium
Assessment / Plan
Assessment / Plan
Gen-AAOx3, NAD
HEENT-NC, AT, anicteric, clear oral mm
Neck-supple
CV-reg, no M, +S1/S2
Lungs-clear B/L
Abd-soft, NT, ND
Ext-no edema
Musculoskeletal-no cyanosis, clubbing
Skin-warm and dry
Neuro-grossly non-focal
Psych-calm, cooperative
Sepsis due to community-acquired pneumonia -dedicated chest CT shows small highly loculated right-sided pleural effusion extending to the apex. Associated adjacent air bronchograms in the right middle lobe and atelectasis in the right upper and
lower lobes. Continue antibiotics, day 3 of 7. Blood cultures negative so far. She is not hypoxic.
WBCs trending down. Afebrile.
Prior CT chest from August of this year suggested a 3 mm nodule in the anterior right upper lobe.
3-month cough is concerning for underlying pulmonary process.
Influenza and COVID-negative.
Appreciate pulmonary input.
Mild right pleural effusion -repeat chest ultrasound with not enough fluid for safe thoracentesis.
Volume depletion -prerenal azotemia noted. IV fluids ordered. Creatinine trending down. Hold NSAIDs.
Mild traumatic rhabdomyolysis -down on the ground for quite some time before her found her. CPK 437. IV fluids as above.
Hypokalemia -will replete. Magnesium is normal.
Elevated transaminases -unclear etiology. Hold rosuvastatin. Labs are trending up. Check GGT.
Hypothyroidism -continue Synthroid. TSH 0.02, check free T4. Suspect euthyroid sick syndrome.
DM2 without hyperglycemia -hold metformin. Hemoglobin A1c 7.3%. Low resistance NovoLog scale. Hold Mounjaro and metformin while in the hospital.
Essential hypertension -stable.
Hyperlipidemia -hold rosuvastatin given elevated LFTs.
Ambulatory dysfunction -anticipate SNF on discharge. Continue PT/OT.
Full code
Dispo -will need SNF when medically stable.
Anticipated Discharge: 24 - 48 hours
Subjective/Interval History
-
Date of Service: April 29, 2024
Patient seen and examined. No complaints.
Objective Data
-
Labs:
Laboratory Results
04/29/24
06:30
WBC 26.5 H
Hgb 9.9 L
Hct 29.9 L
Plt Count 320
Sodium 136
Potassium 3.2 L
Chloride 106
Carbon Dioxide 20 L
BUN 23 H
Creatinine 0.9
Glucose 123 H
Calcium 8.8
Total Bilirubin 0.4
AST 125 H
ALT 105 H
Alkaline Phosphatase 179 H
Vital Signs:
Vital Signs
Temp Pulse Resp BP Pulse Ox
98.4 F 87 16 148/67 91
04/29/24 07:30 04/29/24 08:38 04/29/24 07:30 04/29/24 08:38 04/29/24 07:30
I&O
04/28/24 04/29/24 04/30/24
06:59 06:59 06:59
Intake Total 120 / 120 720 / 720
Output Total 550 / 550 900 / 900
Balance -430 / -430 -180 / -180
Review of Systems
-
History Source: Patient
All other systems: Reviewed and negative
--- NOTE | 2024-04-29 11:13 | PTCARENOTE ---
Pt c/o 06/15 right lower rib pain, MD made aware, new order provided, see MAR.
[2024-04-29] MEDS: TYLENOL 650 MG PO ×3 (11:23→23:59)
[2024-04-29 11:51] LABS: Glucose - Point of Care 158 mg/dl (70-99)
[2024-04-29 11:51] LABS: GGTP 22 U/L (12-43)
[2024-04-29 12:05] LABS: Free T4 2.45 ng/dl (0.78-2.19)
--- NOTE | 2024-04-29 12:18 | W.PN.PUL3 ---
Today's Communication / Plan
-
Consult interventional radiology for CT-guided diagnostic Thora
Continue antibiotics
DVT prophylaxis
Check coags
Assessment
-
79-year-old woman with past medical history noted, complains of 3 months of coughing. For the last several weeks has fallen several times. Last time patient was not able to stand up for 6 hours. She was brought in by for evaluation
Community-acquired pneumonia-right upper lobe consolidation/pleural effusion on CAT scan of the cervical spine.
Chest x-ray 04/27/2024: Suspected loculated right pleural effusion with possible underlying pneumonia.
No evidence for mass on CAT scan on the right upper lobe 08/2023-l there was apparently a benign-appearing 4 mm lung nodule, ess likely lung mass but cannot rule out 100%.
Leukocytosis
Chronic cough for the last 3 months-unclear etiology
Acute kidney injury-volume depletion
Mild rhabdo after fall
Conditions present prior admission:
Mild intermittent asthma
Singular/albuterol HFA as needed/low-dose Flovent
Follows up at our office Dr. Gore and PEGGY
Mild obstructive sleep apnea-intolerant to CPAP
Weight loss and dental appliance as well as positional therapy recommended
Mild bronchiectasis post pneumonia x 2? Per record
Chronic insomnia
Hypothyroidism
Type 2 diabetes-on Mounjaro
Allergic rhinitis
Anxiety
GERD
Prior skin cancer
3 mm lung nodule on the right upper lobe CAT scan 08/2023
Rosacea
Assessment and plan:
At this time, patient appears to be comfortable on room air
Reviewed CT chest findings. Loculated fluid provide right lung noted
Daughter states patient has had multiple falls over the past week
Daughter attributes facial rash to being down on the floor for hours prior to being discovered by after recent fall
Moving forward
Continue with treatment for presumed community-acquired pneumonia
I do think she would require CT-guided sampling of her pleural fluid based on CT findings
Loculations suggest chronicity
I reviewed with interventional radiology, would consider CT guided diagnostic thoracentesis
Consulted Dr. Bobby from IR to assess feasibility
Check coagulation studies
Orders placed to send for: Cell count, cultures, cytology, LDH, total protein etc.
Blood cultures-Pending
Speech evaluation-patient states that she has been having some memory issues. CT head negative for acute abnormalities.
Correspondence reviewed. Regular texture diet with thin liquids. Aspiration precautions recommended. No evidence for overt aspiration.
She denies any significant swallowing problems or GERD.
It is encouraging that in August 2023 there was a tiny 4 mm right upper lobe lung nodule. Not highly suspicious.
Patient is a never smoker
Radiographic follow-up will be needed in the future to document resolution.
With history of asthma: Not bronchospastic on exam
Nebulizers as needed
Continue montelukast
Albuterol HFA as needed
Antitussives
Type 2 diabetes: Recently placed on Mounjaro due to increased hemoglobin A1c.
History of obstructive sleep apnea: Intolerant to CPAP
head of bed elevated
DVT prophylaxis heparin subcu
-
Daughter updated at length at bedside 02/27, updated by Dr. Brooks 02/26
She will follow-up in our office in the next 2 to 3 weeks after discharge. Last time saw Mirella WOODS.
Subjective Data
-
Date of Service:
Date of Service: April 29, 2024
Chief Complaint: Pulmonary Follow Up (Pneumonia/pleural effusion)
Subjective:
Patient continues to have occasional cough, difficult to expectorate, right-sided chest discomfort, pleuritic in nature. Remains on room air. Denies nausea, abdominal pain. Daughter at bedside
Objective Data
Data Reviewed
Vital Signs / I&O / Oxygen:
Vital Signs
Temp Pulse Resp BP Pulse Ox
98.4 F 87 16 148/67 91
04/29/24 07:30 04/29/24 08:38 04/29/24 07:30 04/29/24 08:38 04/29/24 07:30
Intake and Output
04/28/24 04/29/24 04/30/24
06:59 06:59 06:59
Intake Total 120 / 120 720 / 720
Output Total 550 / 550 900 / 900
Balance -430 / -430 -180 / -180
SaO2 91
Physical Exam
General: Comfortable
HEENT: Normocephalic and Anicteric
Cardiovascular: S1-S2, Regular Rhythm, Murmur (n) and Rub (n)
Respiratory: Wheeze (n), Crackles (n), Non-Labored Respirations, Stridor (n) and Other (Decreased right side)
GI: Soft, Non Distended and Non Tender
Neurology: Awake, Alert, Oriented and No Motor Deficits (Generally weak, moves all extremities)
Skin: Other (Rosacea, facial rash involving cheeks and chin)
Labs/Micro/Reports
Lab Data
04/29/24 06:30
04/29/24 06:30
Microbiology
04/27/24 10:23 Blood/Venous Blood Culture - Preliminary
No Growth in 48 hours- Final report to follow
04/27/24 10:27 Blood/Venous Blood Culture - Preliminary
No Growth in 48 hours- Final report to follow
04/27/24 19:38 Nose MRSA Screen - Final
No Methicillin Resistant Staphylococcus aureus isolated.
04/27/24 09:53 Urine Urine Culture - Final
NO GROWTH
04/27/24 09:45 Nasal Swab Influenza Types A & B (STEVEN) - Final
Negative for Influenza A & B, NAAT
Negative results must be combined with clinical observations
and patient history.
Nucleic Acid Amplification test (NAAT)performed on the
[employer] platform.
04/27/24 08:47 Nasal Swab Influenza Types A & B (STEVEN) - Final
Test repeatedly invalid.
Nucleic Acid Amplification test (NAAT)performed on the
[employer] ID NOW platform.
[2024-04-29 12:32] LABS: INR 1.24; PT 16.1 Sec (11.4-14.6)
[2024-04-29 12:49] LABS: Creatine Phosphokinase 161 U/L (30-135)
[2024-04-29] MEDS: NOVOLOG FLEXPEN-LOW RESISTANCE 1 UNITS SC (13:46)
[2024-04-29 16:00] VITALS: BP 123/54
[2024-04-29] MEDS: VITAMIN D3 (cholecalciferol) 50 MCG PO (16:05)
[2024-04-29 16:52] LABS: Glucose - Point of Care 127 mg/dl (70-99)
[2024-04-29 19:15] VITALS: BP 142/68
[2024-04-29] MEDS: KCL 20 MEQ PO (20:37)
[2024-04-29] MEDS: SINGULAIR 10 MG PO (21:51)
[2024-04-29 22:45] LABS: Glucose - Point of Care 104 mg/dl (70-99)
[2024-04-29 23:15] VITALS: BP 145/68
[2024-04-30 04:17] VITALS: BMI 31.6
[2024-04-30] MEDS: SYNTHROID 25 MCG PO (05:26)
[2024-04-30] MEDS: SYNTHROID 150 MCG PO (05:26)
[2024-04-30 06:00] VITALS: BMI 31.6
[2024-04-30 07:44] VITALS: BP 126/59
[2024-04-30 08:05] LABS: Glucose - Point of Care 124 mg/dl (70-99)
[2024-04-30 08:09] LABS: % Basophils 0.4 % (0-2); % Eosinophils 1.8 % (0-6); % Lymphocytes 15.1 % (20.5-51.1); % Neutrophils 73.7 % (42.2-75.2); Absolute Basophils 0.1 10^3/uL (0-0.2); Absolute Eosinophils 0.4 10^3/uL (0-0.7); Absolute Immature Granulocytes 0.7 10^3/uL (0-0.05); Absolute Lymphocytes 3.5 10^3/uL (1.2-3.4); Absolute Monocytes 1.4 10^3/uL (0.1-0.6); Absolute Neutrophils 17.3 10^3/uL (1.4-6.5); Hematocrit 34.9 % (37.0-47.0); Mean Corp Hgb Conc. 31.5 g/dL (33.0-37.0); Mean Corpuscular Volume 88.8 fL (81.0-99.0); Mean Platelet Volume 9.1 fL (7.4-10.4); Nucleated Red Blood Cells % 0 %; Platelet Count 371 10^3/uL (130-400); Red Blood Cell Count 3.93 10^6/uL (4.20-5.40); Red Cell Dist. Width 14.8 % (11.5-14.5); White Blood Cell Count 23.5 10^3/uL (4.8-10.8)
[2024-04-30] MEDS: NOVOLOG FLEXPEN-LOW RESISTANCE SC ×2 (08:28→12:56)
[2024-04-30 08:36] LABS: ALT (SGPT) 187 U/L (0-35); AST (SGOT) 169 U/L (14-36); Albumin 2.7 g/dl (3.5-5.0); Alkaline Phosphatase 209 U/L (38-126); Blood Urea Nitrogen 20 mg/dl (7-17); Calcium 8.8 mg/dl (8.4-10.2); Carbon Dioxide 24 mmol/L (22-30); Chloride 103 mmol/L (98-107); Estimated Creatinine Clearance 49 ml/min; Glucose 100 mg/dl (70-99); Sodium 138 mmol/L (135-145); Total Bilirubin 0.4 mg/dl (0.2-1.3); Total Protein 6.2 g/dl (6.3-8.2); eGFR > 60.00
--- NOTE | 2024-04-30 08:48 | PTCARENOTE ---
Pt c/o 8/10 pain throughout right lower rib every time she coughs. made aware, new order provider, see MAR. Will cont to monitor.
[2024-04-30] MEDS: XANAX 0.25 MG PO (09:01)
[2024-04-30] MEDS: TORADOL 15 MG IV (09:01)
[2024-04-30] MEDS: VIBRAMYCIN 100 MG PO ×2 (09:01→19:54)
[2024-04-30] MEDS: EFFEXOR XR 150 MG PO (09:01)
[2024-04-30] MEDS: TOPROL XL 25 MG PO (09:02)
[2024-04-30] MEDS: MUCINEX 600 MG PO ×2 (09:02→19:54)
[2024-04-30] MEDS: LOW STRENGTH ASPIRIN 81 MG PO (09:02)
[2024-04-30] MEDS: HEPARIN 5000 UNITS SC ×2 (09:02→19:55)
[2024-04-30] MEDS: RESTASIS 0.05% OPHTHALMIC EMULSION 1 DROPS BOTH EYES ×2 (09:03→19:54)
[2024-04-30] MEDS: ZYRTEC 10 MG PO (09:03)
[2024-04-30] MEDS: KCL 20 MEQ PO ×2 (09:03→19:54)
[2024-04-30] MEDS: TESSALON PERLES 100 MG PO (09:04)
[2024-04-30] MEDS: ROCEPHIN 2000 MG IV (09:05)
[2024-04-30] MEDS: STERILE WATER FOR INJECTION 20 ML IV (09:05)
[2024-04-30] MEDS: TYLENOL 650 MG PO (10:07)
[2024-04-30 10:35] VITALS: BP 120/65; BP_SYST 81
[2024-04-30 11:57] LABS: Body Fluid pH 7.22
[2024-04-30 12:12] LABS: Glucose - Point of Care 121 mg/dl (70-99)
[2024-04-30 13:35] LABS: Body Fluid Amylase 36 U/L; Body Fluid Glucose 86 mg/dl; Body Fluid Protein 4.6 g/dl
[2024-04-30 13:45] LABS: Body Fluid LDH 1392 U/L
--- NOTE | 2024-04-30 14:14 | W.PN.HOSP.TC ---
Today's Communication/Plan
-
Continue antibiotics
PT/OT
Bowel regimen
Assessment / Plan
Assessment / Plan
Gen-AAOx3, NAD
HEENT-NC, AT, anicteric, clear oral mm, erythema of bilateral cheeks and chin
Neck-supple
CV-reg, no M, +S1/S2
Lungs-clear B/L
Abd-soft, NT, ND
Ext-no edema
Musculoskeletal-no cyanosis, clubbing
Skin-warm and dry
Neuro-grossly non-focal
Psych-calm, cooperative
Sepsis due to community-acquired pneumonia -dedicated chest CT shows small highly loculated right-sided pleural effusion extending to the apex. Associated adjacent air bronchograms in the right middle lobe and atelectasis in the right upper and
lower lobes. Continue antibiotics, day 4 of 7. Blood cultures negative so far. She is not hypoxic.
WBCs trending down. Afebrile.
Prior CT chest from August of this year suggested a 3 mm nodule in the anterior right upper lobe.
3-month cough is concerning for underlying pulmonary process. Cleared for regular diet by speech therapy.
Influenza and COVID-negative.
Appreciate pulmonary input.
Mild right pleural effusion -repeat chest ultrasound with not enough fluid for safe thoracentesis. CT-guided aspiration performed 04/30, 13 cc straw-colored pleural fluid sent for culture. Gram stain negative. Fluid is loculated.
Volume depletion -prerenal azotemia noted. IV fluids ordered. Creatinine trending down. Hold NSAIDs.
Mild traumatic rhabdomyolysis -down on the ground for quite some time before her found her. CPK 437. IV fluids as above.
Hypokalemia -resolved.
Elevated transaminases -suspect muscle origin. Hold rosuvastatin. Normal GGT makes liver disease unlikely.
Hypothyroidism -elevated free T4 (2.45) noted. Levothyroxine dose reduced. Recheck TSH in 4 weeks.
DM2 without hyperglycemia -hold metformin. Hemoglobin A1c 7.3%. Low resistance NovoLog scale. Hold Mounjaro and metformin while in the hospital.
Essential hypertension -stable.
Hyperlipidemia -hold rosuvastatin given elevated LFTs.
Ambulatory dysfunction -anticipate SNF on discharge. Continue PT/OT.
Full code
Dispo -will need SNF when medically stable. updated at the bedside.
Anticipated Discharge: Within 24 hours
Subjective/Interval History
-
Date of Service: April 30, 2024
Patient seen and examined. Feeling better. No complaints.
Objective Data
-
Labs:
Laboratory Results
04/30/24
06:18
WBC 23.5 H
Hgb 11.0 L
Hct 34.9 L
Plt Count 371
Sodium 138
Potassium 4.0
Chloride 103
Carbon Dioxide 24
BUN 20 H
Creatinine 0.9
Glucose 100 H
Calcium 8.8
Total Bilirubin 0.4
AST 169 H
ALT 187 H
Alkaline Phosphatase 209 H
Vital Signs:
Vital Signs
Temp Pulse Resp BP Pulse Ox
98.2 F 81 19 120/65 90
04/30/24 10:35 04/30/24 10:35 04/30/24 10:35 04/30/24 10:35 04/30/24 10:35
I&O
04/29/24 04/30/24 05/01/24
06:59 06:59 06:59
Intake Total 720 / 720 600 / 600
Output Total 900 / 900 1350 / 1350
Balance -180 / -180 -750 / -750
Review of Systems
-
History Source: Patient
All other systems: Reviewed and negative
[2024-04-30 14:22] LABS: Body Fluid Granulocytes 95 %; Body Fluid Lymphocytes 0 %; Body Fluid Macrophages 3 %; Body Fluid Mesothelials 2 %
--- NOTE | 2024-04-30 14:52 | W.PN.PUL3 ---
Today's Communication / Plan
-
Wait for cytology and culture from fluid
Continue antibiotics
Will need to obtain chest x-ray in the next 48 hours depending on clinical situation
Patient will need ongoing close follow-up in the outpatient setting after discharge.
Assessment
-
79-year-old woman with past medical history noted, complains of 3 months of coughing. For the last several weeks has fallen several times. Last time patient was not able to stand up for 6 hours. She was brought in by for evaluation
Community-acquired pneumonia-right upper lobe consolidation/pleural effusion on CAT scan of the cervical spine.
Chest x-ray 04/27/2024: Suspected loculated right pleural effusion with possible underlying pneumonia.
No evidence for mass on CAT scan on the right upper lobe 08/2023-l there was apparently a benign-appearing 4 mm lung nodule, ess likely lung mass but cannot rule out 100%.
Leukocytosis
Chronic cough for the last 3 months-unclear etiology
Acute kidney injury-volume depletion
Mild rhabdo after fall
Conditions present prior admission:
Mild intermittent asthma
Singular/albuterol HFA as needed/low-dose Flovent
Follows up at our office Dr. Gore and PEGGY
Mild obstructive sleep apnea-intolerant to CPAP
Weight loss and dental appliance as well as positional therapy recommended
Mild bronchiectasis post pneumonia x 2? Per record
Chronic insomnia
Hypothyroidism
Type 2 diabetes-on Mounjaro
Allergic rhinitis
Anxiety
GERD
Prior skin cancer
3 mm lung nodule on the right upper lobe CAT scan 08/2023
Rosacea
Assessment and plan:
At this time, patient appears to be comfortable on room air
Reviewed CT chest findings. Multiple loculations right lung noted
Daughter states patient has had multiple falls over the past week
Daughter attributes facial rash to being down on the floor for hours prior to being discovered by after recent fall
-
Plan:
Continue with treatment for presumed community-acquired pneumonia
Afebrile, leukocytosis improving.
Loculations suggest chronicity
CT-guided sampling yielded 13 cc of serosanguineous fluid.
White blood cells total not performed fluid was clotted
95% PMNs
Glucose 86
pH 7.22
Total protein 4.6
LDH 1392
Amylase 36
So far blood cultures negative.
Will wait for cytology and culture from fluid.
If there is no ongoing improvement with antibiotics and repeat imaging shows worsening loculations may need to get CT surgery involved. Will continue with ongoing follow-up.
-
Speech evaluation-patient states that she has been having some memory issues. CT head negative for acute abnormalities.
Correspondence reviewed. Regular texture diet with thin liquids. Aspiration precautions recommended. No evidence for overt aspiration.
She denies any significant swallowing problems or GERD.
It is encouraging that in August 2023 there was a tiny 4 mm right upper lobe lung nodule. Not highly suspicious.
Patient is a never smoker
Radiographic follow-up will be needed in the future to document resolution.
With history of asthma: Not bronchospastic on exam
Nebulizers as needed
Continue montelukast
Albuterol HFA as needed
Antitussives
Type 2 diabetes: Recently placed on Mounjaro due to increased hemoglobin A1c.
History of obstructive sleep apnea: Intolerant to CPAP
head of bed elevated
DVT prophylaxis heparin subcu
-
Daughter updated at length at bedside 02/27, updated by Dr. Brooks 02/26
She will follow-up in our office in the next 2 to 3 weeks after discharge. Last time saw Mirella WOODS.
Subjective Data
-
Date of Service:
Date of Service: April 30, 2024
Chief Complaint: Pulmonary Follow Up (Pneumonia/pleural effusion)
Objective Data
Data Reviewed
Vital Signs / I&O / Oxygen:
Vital Signs
Temp Pulse Resp BP Pulse Ox
98.2 F 81 19 120/65 90
04/30/24 10:35 04/30/24 10:35 04/30/24 10:35 04/30/24 10:35 04/30/24 10:35
Intake and Output
04/29/24 04/30/24 05/01/24
06:59 06:59 06:59
Intake Total 720 / 720 600 / 600
Output Total 900 / 900 1350 / 1350
Balance -180 / -180 -750 / -750
SaO2 90
Physical Exam
General: Comfortable
HEENT: Normocephalic and Anicteric
Cardiovascular: S1-S2, Regular Rhythm, Murmur (n) and Rub (n)
Respiratory: Wheeze (n), Crackles (n), Non-Labored Respirations, Stridor (n) and Other (Decreased right side)
GI: Soft, Non Distended and Non Tender
Neurology: Awake, Alert, Oriented and No Motor Deficits (Generally weak, moves all extremities)
Skin: Other (Rosacea, facial rash involving cheeks and chin)
Labs/Micro/Reports
Lab Data
04/30/24 06:18
04/30/24 06:18
Microbiology
04/30/24 11:41 Pleural Fluid Gram Stain - Preliminary
04/27/24 10:23 Blood/Venous Blood Culture - Preliminary
No Growth in 72 hours- Final report to follow
04/27/24 10:27 Blood/Venous Blood Culture - Preliminary
No Growth in 72 hours- Final report to follow
04/27/24 19:38 Nose MRSA Screen - Final
No Methicillin Resistant Staphylococcus aureus isolated.
04/27/24 09:53 Urine Urine Culture - Final
NO GROWTH
04/27/24 09:45 Nasal Swab Influenza Types A & B (STEVEN) - Final
Negative for Influenza A & B, NAAT
Negative results must be combined with clinical observations
and patient history.
Nucleic Acid Amplification test (NAAT)performed on the
[employer] ID NOW platform.
[2024-04-30] MEDS: MIRALAX 17 GRAMS PO (15:10)
[2024-04-30] MEDS: VITAMIN D3 (cholecalciferol) 50 MCG PO (15:10)
[2024-04-30 15:23] VITALS: BP 126/67
[2024-04-30 16:45] LABS: Glucose - Point of Care 165 mg/dl (70-99)
[2024-04-30] MEDS: NOVOLOG FLEXPEN-LOW RESISTANCE 1 UNITS SC (17:36)
[2024-04-30] MEDS: SENOKOT-S 1 TABLET PO (19:54)
[2024-04-30] MEDS: SINGULAIR 10 MG PO (19:55)
[2024-04-30 23:10] VITALS: BP 137/65
[2024-05-01 06:00] VITALS: BMI 31.5
[2024-05-01] MEDS: SYNTHROID 150 MCG PO (06:34)
[2024-05-01] MEDS: SYNTHROID 25 MCG PO (06:34)
[2024-05-01 07:00] VITALS: BP 133/59
[2024-05-01 08:09] LABS: Glucose - Point of Care 132 mg/dl (70-99)
[2024-05-01] MEDS: NOVOLOG FLEXPEN-LOW RESISTANCE SC ×2 (08:11→16:30)
[2024-05-01 08:26] LABS: ALT (SGPT) 125 U/L (0-35); AST (SGOT) 76 U/L (14-36); Albumin 2.7 g/dl (3.5-5.0); Alkaline Phosphatase 175 U/L (38-126); Blood Urea Nitrogen 24 mg/dl (7-17); Calcium 8.7 mg/dl (8.4-10.2); Carbon Dioxide 21 mmol/L (22-30); Chloride 104 mmol/L (98-107); Estimated Creatinine Clearance 55 ml/min; Glucose 122 mg/dl (70-99); Sodium 137 mmol/L (135-145); Total Bilirubin 0.3 mg/dl (0.2-1.3); Total Protein 6.2 g/dl (6.3-8.2); eGFR > 60.00
[2024-05-01] MEDS: MUCINEX 600 MG PO ×2 (09:12→21:56)
[2024-05-01] MEDS: VIBRAMYCIN 100 MG PO (09:12)
[2024-05-01] MEDS: EFFEXOR XR 150 MG PO (09:12)
[2024-05-01] MEDS: SENOKOT-S 1 TABLET PO ×2 (09:13→21:56)
[2024-05-01] MEDS: TOPROL XL 25 MG PO (09:13)
[2024-05-01] MEDS: LOW STRENGTH ASPIRIN 81 MG PO (09:13)
[2024-05-01] MEDS: KCL 20 MEQ PO ×2 (09:14→21:56)
[2024-05-01] MEDS: MIRALAX 17 GRAMS PO (09:14)
[2024-05-01] MEDS: ZYRTEC 10 MG PO (09:14)
[2024-05-01] MEDS: HEPARIN 5000 UNITS SC ×2 (09:14→21:55)
[2024-05-01] MEDS: RESTASIS 0.05% OPHTHALMIC EMULSION 1 DROPS BOTH EYES ×2 (09:14→21:56)
[2024-05-01] MEDS: ROCEPHIN 2000 MG IV (09:15)
[2024-05-01] MEDS: STERILE WATER FOR INJECTION 20 ML IV (09:15)
[2024-05-01 10:27] LABS: Hemoglobin 10.5 g/dL (12.0-16.0); Mean Corp Hgb Conc. 33.9 g/dL (33.0-37.0); Mean Corpuscular Hgb 29.3 pg (27.0-31.0); Mean Corpuscular Volume 86.6 fL (81.0-99.0); Red Blood Cell Count 3.58 10^6/uL (4.20-5.40); White Blood Cell Count 32.2 10^3/uL (4.8-10.8)
[2024-05-01 10:28] LABS: Absolute Neutrophils -Man Diff 26.7 10^3/uL (1.4-6.5); Band Neutrophils 0 % (0-3); Lymphocytes 10 % (20-51); Monocytes 4 % (2-9); Segmented Neutrophils 83 % (42-75)
[2024-05-01 10:29] LABS: Hypersegmented Neutrophil Moderate
[2024-05-01 10:34] LABS: Platelets Checked Yes
[2024-05-01 10:35] LABS: Normal RBC Morphology No; Spherocytes 1+
[2024-05-01 10:36] LABS: Anisocytosis 2+; Hypochromasia 1+; Schistocytes Occasional; Target Cells 1+
[2024-05-01 10:37] LABS: Acanthocytes Occasional; Polychromasia 1+; Total Cells Counted 100
[2024-05-01 11:51] LABS: Glucose - Point of Care 185 mg/dl (70-99)
--- NOTE | 2024-05-01 12:03 | W.PN.PUL3 ---
Today's Communication / Plan
-
Cont. ABX
Wait for final fluid clx
Follow WBC
Chest x-ray AP and lateral, order has been placed - tomorrow 05/02/2024
If cytology negative and no improvement, will need CT surgery eval. this has been discussed with patient and as well as daughter 05/01/2024.
Will follow
Assessment
-
79-year-old woman with past medical history noted, complains of 3 months of coughing. For the last several weeks has fallen several times. Last time patient was not able to stand up for 6 hours. She was brought in by for evaluation
Community-acquired pneumonia-right upper lobe consolidation/pleural effusion on CAT scan of the cervical spine.
Chest x-ray 04/27/2024: Suspected loculated right pleural effusion with possible underlying pneumonia.
No evidence for mass on CAT scan on the right upper lobe 08/2023-l there was apparently a benign-appearing 4 mm lung nodule, ess likely lung mass but cannot rule out 100%.
Leukocytosis
Chronic cough for the last 3 months-unclear etiology
Acute kidney injury-volume depletion
Mild rhabdo after fall
Conditions present prior admission:
Mild intermittent asthma
Singular/albuterol HFA as needed/low-dose Flovent
Follows up at our office Dr. Gore and PEGGY
Mild obstructive sleep apnea-intolerant to CPAP
Weight loss and dental appliance as well as positional therapy recommended
Mild bronchiectasis post pneumonia x 2? Per record
Chronic insomnia
Hypothyroidism
Type 2 diabetes-on Mounjaro
Allergic rhinitis
Anxiety
GERD
Prior skin cancer
3 mm lung nodule on the right upper lobe CAT scan 08/2023
Rosacea
Assessment and plan:
Remains comfortable on room air
Reviewed CT chest findings- small, highly loculated right-sided pleural effusion extending to the apex. There is associated adjacent within the right upper and lower lobes. There is partial collapse with air bronchograms in the right middle lobe
which may represent pneumonia.
-
Daughter states patient has had multiple falls over the past week-prior admission.
Daughter attributes facial rash to being down on the floor for hours prior to being discovered by after recent fall
-
Plan:
Continue with treatment for presumed community-acquired pneumonia
Afebrile, Does not appear toxic.
Follow leukocytosis currently 32k
Pt feels rubi.
Loculations suggest chronicity
CT-guided sampling yielded 13 cc of serosanguineous fluid.
White blood cells total not performed fluid was clotted
95% PMNs
Glucose 86
pH 7.22
Total protein 4.6
LDH 1392
Amylase 36
So far blood cultures negative.
culture of fluid negative so far-no WBC or organisms seen.
If cytology negative for malignancy, and there is no ongoing improvement with antibiotics and repeat imaging shows worsening loculations may need to get CT surgery involved for VATS. Will continue with ongoing follow-up.
Repeat CXR ap lateral in AM, eventual repeat CT chest.
-
Continues to have some memory issues, making phone calls to family in the [place] it does not recall-perhaps some component of delirium. Continue to follow closely. To my exam she appears cooperative, calm and able to provide history.
-
Speech evaluation-patient states that she has been having some memory issues. CT head negative for acute abnormalities.
Correspondence reviewed. Regular texture diet with thin liquids. Aspiration precautions recommended. No evidence for overt aspiration.
She denies any significant swallowing problems or GERD.
It is encouraging that in August 2023 there was a tiny 4 mm right upper lobe lung nodule. Not highly suspicious.
Patient is a never smoker
Radiographic follow-up will be needed in the future to document resolution.
With history of asthma: Not bronchospastic on exam
Nebulizers as needed
Continue montelukast
Albuterol HFA as needed
Antitussives
Type 2 diabetes: Recently placed on Mounjaro due to increased hemoglobin A1c.
History of obstructive sleep apnea: Intolerant to CPAP
head of bed elevated
DVT prophylaxis heparin subcu
-
Daughter updated at length at bedside 04/29, updated by Dr. Brooks 04/28, 04/30 and 05/01.
She will follow-up in our office in the next 2 to 3 weeks after discharge. Last time saw Mirella WOODS.
Subjective Data
-
Date of Service:
Date of Service: May 01, 2024
Chief Complaint: Pulmonary Follow Up (Pneumonia/pleural effusion)
Subjective:
No new complaints.
Afebrile
No significant pleuritic chest pain.
Review of Systems
General: Fever (n)
Cardiopulmonary: Dyspnea (none a rest)
GI: Abdominal Pain (n) and Nausea (n)
Neuro: Headache (n)
Objective Data
Data Reviewed
Vital Signs / I&O / Oxygen:
Vital Signs
Temp Pulse Resp BP Pulse Ox
98.0 F 78 16 133/59 92
05/01/24 07:00 05/01/24 07:00 05/01/24 07:00 05/01/24 07:00 05/01/24 07:00
Intake and Output
04/30/24 05/01/24 05/02/24
06:59 06:59 06:59
Intake Total 600 / 600 1560 / 1560
Output Total 1350 / 1350 1000 / 1000
Balance -750 / -750 560 / 560
SaO2 92
Physical Exam
General: Comfortable
HEENT: Normocephalic and Anicteric
Cardiovascular: S1-S2, Regular Rhythm, Murmur (n) and Rub (n)
Respiratory: Wheeze (n), Crackles (n), Non-Labored Respirations, Stridor (n) and Other (Decreased right side)
GI: Soft, Non Distended and Non Tender
Neurology: Awake, Alert, Oriented and No Motor Deficits (Generally weak, moves all extremities)
Skin: Other (Rosacea, facial rash involving cheeks and chin)
Labs/Micro/Reports
Lab Data
05/01/24 07:19
05/01/24 07:19
Microbiology
04/30/24 11:41 Pleural Fluid Body Fluid Culture - Preliminary
No Growth After 18-24 Hours
04/30/24 11:41 Pleural Fluid Gram Stain - Preliminary
04/27/24 10:23 Blood/Venous Blood Culture - Preliminary
No Growth in 4 days- Final report to follow
04/27/24 10:27 Blood/Venous Blood Culture - Preliminary
No Growth in 4 days- Final report to follow
04/27/24 19:38 Nose MRSA Screen - Final
No Methicillin Resistant Staphylococcus aureus isolated.
04/27/24 09:53 Urine Urine Culture - Final
NO GROWTH
--- NOTE | 2024-05-01 12:30 | W.PN.HOSP.TC ---
Today's Communication/Plan
-
ID consult
[place]
Assessment / Plan
Assessment / Plan
Gen-AAOx3, NAD
HEENT-NC, AT, anicteric, clear oral mm, erythema of bilateral cheeks and chin
Neck-supple
CV-reg, no M, +S1/S2
Lungs-clear B/L
Abd-soft, NT, ND
Ext-no edema
Musculoskeletal-no cyanosis, clubbing
Skin-warm and dry
Neuro-grossly non-focal
Psych-calm, cooperative
Sepsis due to community-acquired pneumonia -dedicated chest CT shows small highly loculated right-sided pleural effusion extending to the apex. Associated adjacent air bronchograms in the right middle lobe and atelectasis in the right upper and
lower lobes. Continue antibiotics, day 5 of 7. Blood cultures negative so far. She is not hypoxic.
Afebrile but WBC count unfortunately trending up. Will consult ID.
Prior CT chest from August of this year suggested a 3 mm nodule in the anterior right upper lobe.
3-month cough is concerning for underlying pulmonary process. Cleared for regular diet by speech therapy.
Influenza and COVID-negative.
Appreciate pulmonary input.
Mild right pleural effusion -repeat chest ultrasound with not enough fluid for safe thoracentesis. CT-guided aspiration performed 04/30, 13 cc straw-colored pleural fluid sent for culture. Gram stain negative, culture negative so far. Cytology
pending. Fluid is loculated.
Volume depletion -improved.
Mild traumatic rhabdomyolysis -down on the ground for quite some time before her found her. CPK 437. IV fluids as above.
Hypokalemia -resolved.
Elevated transaminases -suspect muscle origin. Hold rosuvastatin. Normal GGT makes liver disease unlikely.
Hypothyroidism -elevated free T4 (2.45) noted. Levothyroxine dose reduced. Recheck TSH in 4 weeks.
DM2 without hyperglycemia -hold metformin. Hemoglobin A1c 7.3%. Low resistance NovoLog scale. Hold Mounjaro and metformin while in the hospital.
Essential hypertension -stable.
Hyperlipidemia -hold rosuvastatin given elevated LFTs.
Ambulatory dysfunction -anticipate SNF on discharge. Continue PT/OT.
Full code
Dispo -will need SNF when medically stable. updated at the bedside.
Anticipated Discharge: > 48 hours
Subjective/Interval History
-
Date of Service: May 01, 2024
Patient seen and examined. Complaining of cough with thick phlegm.
Objective Data
-
Labs:
Laboratory Results
05/01/24
07:19
WBC 32.2 H
Hgb 10.5 L
Hct 31.0 L
Plt Count
Sodium 137
Potassium 4.0
Chloride 104
Carbon Dioxide 21 L
BUN 24 H
Creatinine 0.8
Glucose 122 H
Calcium 8.7
Total Bilirubin 0.3
AST 76 H
ALT 125 H
Alkaline Phosphatase 175 H
Vital Signs:
Vital Signs
Temp Pulse Resp BP Pulse Ox
98.0 F 78 16 133/59 92
05/01/24 07:00 05/01/24 07:00 05/01/24 07:00 05/01/24 07:00 05/01/24 07:00
I&O
04/30/24 05/01/24 05/02/24
06:59 06:59 06:59
Intake Total 600 / 600 1560 / 1560
Output Total 1350 / 1350 1000 / 1000
Balance -750 / -750 560 / 560
Review of Systems
-
History Source: Patient
All other systems: Reviewed and negative
[2024-05-01 12:40] VITALS: BP 128/67; BP 132/61; PULSE 73; PULSE 83; O2SAT 95
[2024-05-01 12:43] VITALS: BP 128/67; BP 132/61; PULSE 75; PULSE 83; O2SAT 95
[2024-05-01] MEDS: NOVOLOG FLEXPEN-LOW RESISTANCE 1 UNITS SC (13:08)
[2024-05-01] MEDS: PEPCID 20 MG PO (13:09)
--- NOTE | 2024-05-01 13:48 | CON.ID ---
Consultation
-
Date/Time Consultation Requested: 05/01/24 11:51
Date/Time Consultation Performed: 05/01/24 13:48
Requesting Provider: Dr Arthur
Performing Provider: Dr Salmon
Reason for Consultation: persistent leukocytosis
Chief Complaint / Past History
Chief Complaint
Cough, weakness, falls
History of Present Illness
Ms Alves is a 79 year old female with history of CAD, anxiety who presented here 04/27 for 3 falls in a week and weakness. Also reporting chronic cough for the last 3 months. Completed a course of doxycycline 2 days prior to arrival for suspected
bronchitis. Cough has been productive, no hemoptysis. On the day of admission she fell, was unable to get up for over 6 hours and then when found her EMS was called. Of note also with a fall the night before.
Since arrival here she has been afebrile, bp stable, wbc count initially 26 now 32, hgb 10.5, plt 371, L shift is noted, cr initially 1.2 now 08, a1c 7.3, lactic acid 1.6, t bili 0.2, ast peaked at 125 now 76, alt peaked at 187 now 125, alk pohs
175, ldh 267, ck initially 437 now downtrending, had CT guided sampling of pleural effusion on 04/30 with 13 ccs os serosanguineoous fluid showing White blood cells total not performed fluid was clotted, 95% PMNs, Glucose 86, pH 7.22, Total protein
4.6, LDH 1392, cytology pending, seen by [employer] and no overt aspiration, plan for repeat CXR in the AM, currently on ceftriaxone and doxycycline. ID is consulted for assistance with management.
Past History
Additional Past Medical History:
CAD
Essential hypertension
DM2
Hypothyroidism
Hyperlipidemia
Mild intermittent asthma
Allergic rhinitis
Anxiety disorder
GERD
Rosacea
Skin cancer
Additional Past Surgical History:
Skin cancer resection
Allergy History:
Sulfa (Sulfonamide Antibiotics) Allergy (Verified 05/29/19 14:30)
Rash
Medications Reviewed: Yes
Social History
Tobacco: Non-Smoker
Alcohol: None
Drug: None
Family History
Family History: Not Pertinent
Review of Systems
Review of Systems
General: Negative Fever or Chills
All systems: All other systems were reviewed and were negative
Vital Signs
Temp Pulse Resp BP Pulse Ox
98.0 F 78 16 133/59 92
05/01/24 07:00 05/01/24 07:00 05/01/24 07:00 05/01/24 07:00 05/01/24 07:00
Physical Exam
Physical Exam
Constitutional: No Acute Distress and Chronically Ill
Cardiovascular: Regular Rate and S1/S2; Negative Murmur or Rub
Pulmonary: Clear, Symmetric and Non Labored; Negative Wheezes, Rales or Rhonchi
Gastrointestinal: Soft, Non Tender, Non Distended and Normal Bowel Sounds
Skin: Warm and Dry; Negative Rash or Jaundice
Neurological: Awake
Lab / Diagnostic Study Results
05/01/24 07:19
05/01/24 07:19
Abs Immat Gran (auto) 0.7 10^3/uL (0-0.05) H 04/30/24 06:18
Absolute Neuts (auto) 17.3 10^3/uL (1.4-6.5) H 04/30/24 06:18
Absolute Lymphs (auto) 3.5 10^3/uL (1.2-3.4) H 04/30/24 06:18
Absolute Monos (auto) 1.4 10^3/uL (0.1-0.6) H 04/30/24 06:18
Absolute Basos (auto) 0.1 10^3/uL (0-0.2) 04/30/24 06:18
Total Counted 100 05/01/24 07:19
Immature Gran % 3.0 % (0-0.5) H 04/30/24 06:18
Neutrophils % 73.7 % (42.2-75.2) 04/30/24 06:18
Lymphocytes % 15.1 % (20.5-51.1) L 04/30/24 06:18
Monocytes % 6.0 % (1.7-9.3) 04/30/24 06:18
Eosinophils % 1.8 % (0-6) 04/30/24 06:18
Basophils % 0.4 % (0-2) 04/30/24 06:18
Abs Neuts (Manual) 26.7 10^3/uL (1.4-6.5) H 05/01/24 07:19
Segmented Neutrophils 83 % (42-75) H 05/01/24 07:19
Band Neutrophils 0 % (0-3) 05/01/24 07:19
Lymphocytes (Manual) 10 % (20-51) L 05/01/24 07:19
Basophils (Manual) 3 % 05/01/24 07:19
PT 16.1 Sec (11.4-14.6) H 04/29/24 11:58
INR 1.24 04/29/24 11:58
Lactic Acid 1.6 mmol/L (0.7-2.0) 04/27/24 10:23
Ur Squamous Epith Cells 3-5 /LPF (Few) 04/27/24 09:53
Microbiology Results
Micro:
04/30/24 11:41 Body Fluid Culture - Preliminary
Pleural Fluid No Growth After 18-24 Hours
Gram Stain - Preliminary
04/27/24 10:23 Blood Culture - Preliminary
Blood/Venous No Growth in 4 days- Final report to follow
04/27/24 10:27 Blood Culture - Preliminary
Blood/Venous No Growth in 4 days- Final report to follow
04/27/24 19:38 MRSA Screen - Final
Nose No Methicillin Resistant Staphylococcus aureus isolated.
04/27/24 09:53 Urine Culture - Final
Urine NO GROWTH
04/27/24 09:45 Influenza Types A & B (STEVEN) - Final
Nasal Swab Negative for Influenza A & B, NAAT
Negative results must be combined with clinical observations
and patient history.
Nucleic Acid Amplification test (NAAT)performed on the
[employer] NOW platform.
04/27/24 08:47 Influenza Types A & B (STEVEN) - Final
Nasal Swab Test repeatedly invalid.
Nucleic Acid Amplification test (NAAT)performed on the
[employer] ID NOW platform.
Assessment / Plan
Probable Empyema
Suspected dysphagia
Recurrent Falls
- cultures likely falsely negative due to previous antibiotics
- pH most consistent with empyema
- s/p drainage of the collection, with plans for repeat CXR in the AM and eventual CT chest per pulmonary
- agree that CT surgery consulation may be considered if worsening
- on aspiration precautions
- note that had thoracentesis 04/30 - may see some improvement with drainage in the coming days
- continue ceftriaxone, added metronidazole; stop doxycycline
[2024-05-01 15:00] VITALS: BP 138/57
--- NOTE | 2024-05-01 15:30 | CM ---
Reviewed patient's PT. Indication is for rehab. Met with patient and her daughter who was at bedside. Patient admitted to being a little confused but understands that she is weak and could benefit from rehab. Spoke with her daughter, Wanda who
stated that any facility in their general area that can accept her would be what she would choose. Reviewed facilities with patient and her daughter who were agreeable to referrals being sent to: [facility], [facility] [place]
and [facility]. Will send referrals.
Plan: Case management will continue to follow and assist with discharge planning. SNF when stable.
[2024-05-01] MEDS: VITAMIN D3 (cholecalciferol) 50 MCG PO (15:56)
[2024-05-01 16:14] LABS: Glucose - Point of Care 114 mg/dl (70-99)
[2024-05-01] MEDS: FLAGYL 500 MG PO (21:55)
[2024-05-01] MEDS: SINGULAIR 10 MG PO (21:56)
[2024-05-01 22:00] LABS: Glucose - Point of Care 117 mg/dl (70-99)
[2024-05-01 23:00] VITALS: BP 131/64
[2024-05-02 06:00] VITALS: BMI 31.9
[2024-05-02] MEDS: SYNTHROID 25 MCG PO (06:40)
[2024-05-02] MEDS: SYNTHROID 150 MCG PO (06:41)
[2024-05-02 07:00] VITALS: BP 134/63
[2024-05-02] MEDS: TOPROL XL 25 MG PO (08:17)
[2024-05-02] MEDS: KCL 20 MEQ PO ×2 (08:18→22:20)
[2024-05-02] MEDS: MUCINEX 600 MG PO ×2 (08:18→22:20)
[2024-05-02] MEDS: ZYRTEC 10 MG PO (08:18)
[2024-05-02] MEDS: MIRALAX 17 GRAMS PO (08:18)
[2024-05-02] MEDS: SENOKOT-S 1 TABLET PO ×2 (08:18→22:21)
[2024-05-02] MEDS: FLAGYL 500 MG PO ×2 (08:18→22:17)
[2024-05-02] MEDS: PEPCID 20 MG PO (08:18)
[2024-05-02] MEDS: EFFEXOR XR 150 MG PO (08:18)
[2024-05-02] MEDS: LOW STRENGTH ASPIRIN 81 MG PO (08:18)
[2024-05-02] MEDS: HEPARIN 5000 UNITS SC ×2 (08:19→22:17)
[2024-05-02] MEDS: RESTASIS 0.05% OPHTHALMIC EMULSION 1 DROPS BOTH EYES ×2 (08:19→22:21)
[2024-05-02 09:06] LABS: Glucose - Point of Care 142 mg/dl (70-99)
[2024-05-02] MEDS: ROCEPHIN 2000 MG IV (10:17)
[2024-05-02] MEDS: STERILE WATER FOR INJECTION 20 ML IV (10:17)
[2024-05-02] MEDS: NOVOLOG FLEXPEN-LOW RESISTANCE SC ×3 (10:57→17:34)
[2024-05-02 11:50] LABS: Glucose - Point of Care 141 mg/dl (70-99)
[2024-05-02 15:00] VITALS: BP 139/58
[2024-05-02] MEDS: VITAMIN D3 (cholecalciferol) 50 MCG PO (15:11)
--- NOTE | 2024-05-02 15:43 | W.PN.HOSP.TC ---
Today's Communication/Plan
-
continue current care
Assessment / Plan
Assessment / Plan
Gen-AAOx3, NAD
HEENT-NC, AT, anicteric, clear oral mm, erythema of bilateral cheeks and chin
Neck-supple
CV-reg, no M, +S1/S2
Lungs-clear B/L
Abd-soft, NT, ND
Ext-no edema
Musculoskeletal-no cyanosis, clubbing
Skin-warm and dry
Neuro-grossly non-focal
Psych-calm, cooperative
Sepsis due to community-acquired pneumonia -dedicated chest CT shows small highly loculated right-sided pleural effusion extending to the apex. Associated adjacent air bronchograms in the right middle lobe and atelectasis in the right upper and
lower lobes. Continue antibiotics, day 6. Now on ceftriaxone and metronidazole per ID. Blood cultures negative so far. She is not hypoxic.
Afebrile but WBC count unfortunately trending up.
Prior CT chest from August of this year suggested a 3 mm nodule in the anterior right upper lobe.
3-month cough is concerning for underlying pulmonary process. Cleared for regular diet by speech therapy.
Influenza and COVID-negative.
Mild right pleural effusion -loculated effusion, possible empyema per ID. CT-guided aspiration performed 04/30, 13 cc straw-colored pleural fluid sent for culture. Gram stain negative, culture negative so far. Cytology pending. Fluid is
loculated. May need CT surgery involvement if no improvement. However, chest x-ray from today demonstrates improving right sided infiltrate/effusion.
Volume depletion -improved.
Mild traumatic rhabdomyolysis -down on the ground for quite some time before her found her. CPK trended down.
Hypokalemia -resolved.
Elevated transaminases -suspect muscle origin. Hold rosuvastatin. Normal GGT makes liver disease unlikely.
Hypothyroidism -elevated free T4 (2.45) noted. Levothyroxine dose reduced. Recheck TSH in 4 weeks.
DM2 without hyperglycemia -hold metformin. Hemoglobin A1c 7.3%. Glucose 142 this am. Low resistance NovoLog scale. Hold Mounjaro and metformin while in the hospital.
Essential hypertension -stable.
Hyperlipidemia -hold rosuvastatin given elevated LFTs.
Ambulatory dysfunction -anticipate SNF on discharge. Continue PT/OT.
Full code
Dispo -will need SNF when medically stable. Daughter updated at the bedside.
Anticipated Discharge: > 48 hours
Subjective/Interval History
-
Date of Service: May 02, 2024
Patient seen and examined. Overall feeling stronger. Able to expectorate a lot of phlegm. Using her Acapella and incentive spirometer. Denies shortness of breath.
Objective Data
-
Vital Signs:
Vital Signs
Temp Pulse Resp BP Pulse Ox
97.6 F 73 17 134/63 94
05/02/24 07:00 05/02/24 07:00 05/02/24 07:00 05/02/24 07:00 05/02/24 07:00
I&O
05/01/24 05/02/24 05/03/24
06:59 06:59 06:59
Intake Total 1560 / 1560 1140 / 1140
Output Total 1000 / 1000 600 / 600
Balance 560 / 560 540 / 540
Review of Systems
-
History Source: Patient
All other systems: Reviewed and negative
--- NOTE | 2024-05-02 16:28 | W.PN.ID1 ---
Date of Service
Date of Service: May 02, 2024
Today's Communication
Continue antibiotics.
Assessment / Plan
Probable Empyema
Suspected dysphagia
Recurrent Falls
- cultures may be falsely negative due to previous antibiotics
- pH most consistent with empyema
- on aspiration precautions
- note that had thoracentesis 04/30 - may see some improvement with drainage in the coming days
- continue ceftriaxone, metronidazole
Chief Complaint
-: Other (Suspected empyema)
Subjective / Review of Systems
Patient seen and examined. Reports ongoing sputum production.
Review of Systems: No Fever, No Chills, Cough and Sputum Production
Vital Signs / Physical Exam
Vital Signs
Vital Signs
Temp Pulse Resp BP Pulse Ox
98.3 F 75 17 139/58 93
05/02/24 15:00 05/02/24 15:00 05/02/24 15:00 05/02/24 15:00 05/02/24 15:00
Physical Exam
Constitutional: Comfortable and Non-toxic
Cardiovascular: S1/S2; Negative S3/S4
Pulmonary: Non Labored
Gastrointestinal: Non Distended
Neurological: Awake and Alert
Psychological: Calm
Objective Data
Lab Data
Lab Results
05/01/24 07:19
05/01/24 07:19
PT 16.1 Sec (11.4-14.6) H 04/29/24 11:58
INR 1.24 04/29/24 11:58
Estimated Creat Clear 55 ml/min 05/01/24 07:19
Lactic Acid 1.6 mmol/L (0.7-2.0) 04/27/24 10:23
Total Bilirubin 0.3 mg/dl (0.2-1.3) 05/01/24 07:19
GGT 22 U/L (12-43) 04/29/24 06:30
AST 76 U/L (14-36) H 05/01/24 07:19
ALT 125 U/L (0-35) H 05/01/24 07:19
Alkaline Phosphatase 175 U/L (38-126) H 05/01/24 07:19
Most recent labs reviewed.
Micro Results:
04/27/24 10:23 Blood Culture - Final
Blood/Venous No Growth - Final Report
04/27/24 10:27 Blood Culture - Final
Blood/Venous No Growth - Final Report
04/30/24 11:41 Body Fluid Culture - Preliminary
Pleural Fluid No Growth After 48 Hours
Gram Stain - Preliminary
04/27/24 19:38 MRSA Screen - Final
Nose No Methicillin Resistant Staphylococcus aureus isolated.
04/27/24 09:53 Urine Culture - Final
Urine NO GROWTH
04/27/24 09:45 Influenza Types A & B (STEVEN) - Final
Nasal Swab Negative for Influenza A & B, NAAT
Negative results must be combined with clinical observations
and patient history.
Nucleic Acid Amplification test (NAAT)performed on the
[employer] NOW platform.
04/27/24 08:47 Influenza Types A & B (STEVEN) - Final
Nasal Swab Test repeatedly invalid.
Nucleic Acid Amplification test (NAAT)performed on the
[employer] NOW platform.
[2024-05-02 17:01] LABS: Glucose - Point of Care 99 mg/dl (70-99)
--- NOTE | 2024-05-02 18:03 | W.PN.PUL3 ---
Today's Communication / Plan
-
Chest x-ray and symptoms improved
Continue with ceftriaxone, Flagyl per ID
Await cytology
Eventual follow-up CT chest as outpatient
Assessment
-
79-year-old woman with past medical history noted, complains of 3 months of coughing. For the last several weeks has fallen several times. Last time patient was not able to stand up for 6 hours. She was brought in by for evaluation
Community-acquired pneumonia-right upper lobe consolidation/pleural effusion on CAT scan of the cervical spine.
Chest x-ray 04/27/2024: Suspected loculated right pleural effusion with possible underlying pneumonia.
No evidence for mass on CAT scan on the right upper lobe 08/2023-l there was apparently a benign-appearing 4 mm lung nodule, ess likely lung mass but cannot rule out 100%.
Leukocytosis
Chronic cough for the last 3 months-unclear etiology
Acute kidney injury-volume depletion
Mild rhabdo after fall
Conditions present prior admission:
Mild intermittent asthma
Singular/albuterol HFA as needed/low-dose Flovent
Follows up at our office Dr. Gore and PEGGY
Mild obstructive sleep apnea-intolerant to CPAP
Weight loss and dental appliance as well as positional therapy recommended
Mild bronchiectasis post pneumonia x 2? Per record
Chronic insomnia
Hypothyroidism
Type 2 diabetes-on Mounjaro
Allergic rhinitis
Anxiety
GERD
Prior skin cancer
3 mm lung nodule on the right upper lobe CAT scan 08/2023
Rosacea
Assessment and plan:
Remains comfortable on room air
Feels right-sided chest discomfort has improved
Chest x-ray today with overall improved right pleural parenchymal process
Reviewed CT chest findings- small, highly loculated right-sided pleural effusion extending to the apex. There is associated adjacent within the right upper and lower lobes. There is partial collapse with air bronchograms in the right middle lobe
which may represent pneumonia.
Daughter states patient has had multiple falls over the past week-prior admission.
Daughter attributes facial rash to being down on the floor for hours prior to being discovered by after recent fall
Moving forward
Continue with treatment for presumed community-acquired pneumonia
Afebrile, Does not appear toxic.
Appears to be improving objectively and subjectively. Chest x-ray improved
White count/leukocytosis persistent. Follow
Loculations suggest chronicity
CT-guided sampling yielded 13 cc of serosanguineous fluid.
White blood cells total not performed fluid was clotted
95% PMNs
Glucose 86
pH 7.22
Total protein 4.6
LDH 1392
Amylase 36
So far blood cultures negative.
culture of fluid negative so far-no WBC or organisms seen.
If cytology negative for malignancy, and there is no ongoing improvement with antibiotics and repeat imaging shows worsening loculations may need to get CT surgery involved for VATS. Will continue with ongoing follow-up.
Given improvement in chest x-ray and improvement in pain, will continue to follow conservatively
-
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 Continue to follow closely. To my exam she appears cooperative, calm and able to provide history.
-
Speech evaluation-patient states that she has been having some memory issues. CT head negative for acute abnormalities.
Correspondence reviewed. Regular texture diet with thin liquids. Aspiration precautions recommended. No evidence for overt aspiration.
She denies any significant swallowing problems or GERD.
It is encouraging that in August 2023 there was a tiny 4 mm right upper lobe lung nodule. Not highly suspicious.
Patient is a never smoker
Radiographic follow-up will be needed in the future to document resolution.
With history of asthma: Not bronchospastic on exam
Nebulizers as needed
Continue montelukast
Albuterol HFA as needed
Antitussives
Type 2 diabetes: Recently placed on Mounjaro due to increased hemoglobin A1c.
History of obstructive sleep apnea: Intolerant to CPAP
head of bed elevated
DVT prophylaxis heparin subcu
-
Reviewed with at bedside
She will follow-up in our office in the next 2 to 3 weeks after discharge. Last time saw Mirellaroni [facility]S.
Subjective Data
-
Date of Service:
Date of Service: May 02, 2024
Chief Complaint: Pulmonary Follow Up (Pneumonia/pleural effusion)
Subjective:
Patient seen and examined earlier this morning. Late entry. Patient feels right-sided chest discomfort has improved. at bedside. Breathing also improved. Denies nausea, abdominal pain. Describes minimal cough
Objective Data
Data Reviewed
Vital Signs / I&O / Oxygen:
Vital Signs
Temp Pulse Resp BP Pulse Ox
98.3 F 75 17 139/58 93
05/02/24 15:00 05/02/24 15:00 05/02/24 15:00 05/02/24 15:00 05/02/24 15:00
Intake and Output
05/01/24 05/02/24 05/03/24
06:59 06:59 06:59
Intake Total 1560 / 1560 1140 / 1140
Output Total 1000 / 1000 600 / 600
Balance 560 / 560 540 / 540
SaO2 93
Physical Exam
General: Comfortable
HEENT: Normocephalic and Anicteric
Cardiovascular: S1-S2, Regular Rhythm, Murmur (n) and Rub (n)
Respiratory: Wheeze (n), Crackles (n), Non-Labored Respirations, Stridor (n) and Other (Decreased right side)
GI: Soft, Non Distended and Non Tender
Neurology: Awake, Alert and No Motor Deficits (Generally weak, moves all extremities)
Skin: Other (Rosacea, facial rash involving cheeks and chin, scaling, improved)
Labs/Micro/Reports
Lab Data
05/01/24 07:19
05/01/24 07:19
Microbiology
04/27/24 10:23 Blood/Venous Blood Culture - Final
No Growth - Final Report
04/27/24 10:27 Blood/Venous Blood Culture - Final
No Growth - Final Report
04/30/24 11:41 Pleural Fluid Body Fluid Culture - Preliminary
No Growth After 48 Hours
04/30/24 11:41 Pleural Fluid Gram Stain - Preliminary
[2024-05-02 21:30] LABS: Glucose - Point of Care 156 mg/dl (70-99)
[2024-05-02] MEDS: SINGULAIR 10 MG PO (22:31)
[2024-05-02 23:15] VITALS: BP 149/67
[2024-05-03 06:00] VITALS: BMI 31.6
[2024-05-03] MEDS: SYNTHROID 25 MCG PO (06:16)
[2024-05-03] MEDS: SYNTHROID 150 MCG PO (06:19)
[2024-05-03 07:00] LABS: ALT (SGPT) 105 U/L (0-35); AST (SGOT) 64 U/L (14-36); Albumin 2.8 g/dl (3.5-5.0); Alkaline Phosphatase 172 U/L (38-126); Blood Urea Nitrogen 20 mg/dl (7-17); Calcium 8.8 mg/dl (8.4-10.2); Carbon Dioxide 18 mmol/L (22-30); Chloride 105 mmol/L (98-107); Estimated Creatinine Clearance 63 ml/min; Glucose 115 mg/dl (70-99); Potassium 4.6 mmol/L (3.5-5.1); Sodium 137 mmol/L (135-145); Total Bilirubin 0.5 mg/dl (0.2-1.3); Total Protein 6.6 g/dl (6.3-8.2); eGFR > 60.00
[2024-05-03 07:10] LABS: % Basophils 0.6 % (0-2); % Eosinophils 0.9 % (0-6); % Immature Granulocytes 3.3 % (0-0.5); % Lymphocytes 13.6 % (20.5-51.1); % Monocytes 5.2 % (1.7-9.3); % Neutrophils 76.4 % (42.2-75.2); Absolute Basophils 0.2 10^3/uL (0-0.2); Absolute Eosinophils 0.2 10^3/uL (0-0.7); Absolute Immature Granulocytes 0.8 10^3/uL (0-0.05); Absolute Lymphocytes 3.2 10^3/uL (1.2-3.4); Absolute Monocytes 1.2 10^3/uL (0.1-0.6); Absolute Neutrophils 17.8 10^3/uL (1.4-6.5); Hematocrit 32.5 % (37.0-47.0); Hemoglobin 10.5 g/dL (12.0-16.0); Mean Corp Hgb Conc. 32.3 g/dL (33.0-37.0); Mean Corpuscular Hgb 27.8 pg (27.0-31.0); Nucleated Red Blood Cells % 0 %; Platelet Count 366 10^3/uL (130-400); Red Blood Cell Count 3.78 10^6/uL (4.20-5.40); Red Cell Dist. Width 15.5 % (11.5-14.5); White Blood Cell Count 23.2 10^3/uL (4.8-10.8)
[2024-05-03 07:30] VITALS: BP 117/60
[2024-05-03] MEDS: MUCINEX 600 MG PO ×2 (08:36→21:55)
[2024-05-03] MEDS: EFFEXOR XR 150 MG PO (08:36)
[2024-05-03] MEDS: ZYRTEC 10 MG PO (08:37)
[2024-05-03] MEDS: FLAGYL 500 MG PO ×2 (08:37→21:53)
[2024-05-03] MEDS: PEPCID 20 MG PO (08:37)
[2024-05-03] MEDS: KCL 20 MEQ PO ×2 (08:37→21:58)
[2024-05-03] MEDS: SENOKOT-S 1 TABLET PO ×2 (08:37→21:53)
[2024-05-03] MEDS: LOW STRENGTH ASPIRIN 81 MG PO (08:37)
[2024-05-03] MEDS: TOPROL XL 25 MG PO (08:37)
[2024-05-03] MEDS: HEPARIN 5000 UNITS SC ×2 (08:38→21:53)
[2024-05-03] MEDS: RESTASIS 0.05% OPHTHALMIC EMULSION 1 DROPS BOTH EYES ×2 (08:39→21:56)
[2024-05-03] MEDS: MIRALAX 17 GRAMS PO (08:39)
[2024-05-03 09:06] LABS: Glucose - Point of Care 193 mg/dl (70-99)
[2024-05-03] MEDS: NOVOLOG FLEXPEN-LOW RESISTANCE 1 UNITS SC (09:12)
[2024-05-03] MEDS: ROCEPHIN 2000 MG IV (10:45)
[2024-05-03] MEDS: STERILE WATER FOR INJECTION 20 ML IV (10:45)
[2024-05-03] MEDS: FLUSH (NSS) 2 FLUSH IV (10:55)
[2024-05-03 12:02] LABS: Glucose - Point of Care 127 mg/dl (70-99)
[2024-05-03] MEDS: NOVOLOG FLEXPEN-LOW RESISTANCE SC ×2 (12:03→17:16)
--- NOTE | 2024-05-03 14:02 | W.PN.HOSP.TC ---
Today's Communication/Plan
-
Continue current care
Assessment / Plan
Assessment / Plan
Gen-AAOx3, NAD
HEENT-NC, AT, anicteric, clear oral mm, erythema of bilateral cheeks and chin
Neck-supple
CV-reg, no M, +S1/S2
Lungs-clear B/L
Abd-soft, NT, ND
Ext-no edema
Musculoskeletal-no cyanosis, clubbing
Skin-warm and dry
Neuro-grossly non-focal
Psych-calm, cooperative
Sepsis due to community-acquired pneumonia -dedicated chest CT shows small highly loculated right-sided pleural effusion extending to the apex. Associated adjacent air bronchograms in the right middle lobe and atelectasis in the right upper and
lower lobes. Continue antibiotics, day 7. Now on ceftriaxone and metronidazole per ID. Blood cultures negative so far. She is not hypoxic.
WBCs trending down.
Prior CT chest from August of this year suggested a 3 mm nodule in the anterior right upper lobe.
3-month cough is concerning for underlying pulmonary process. Cleared for regular diet by speech therapy.
Influenza and COVID-negative.
Mild right pleural effusion -loculated effusion, possible empyema per ID. CT-guided aspiration performed 04/30, 13 cc straw-colored pleural fluid sent for culture. Gram stain negative, culture negative so far. Cytology pending. Fluid is
loculated. May need CT surgery involvement if no improvement. However, chest x-ray from 05/02 demonstrates improving right sided infiltrate/effusion.
Volume depletion -improved.
Mild traumatic rhabdomyolysis -down on the ground for quite some time before her found her. CPK trended down.
Hypokalemia -resolved.
Elevated transaminases -suspect muscle origin. Hold rosuvastatin. Normal GGT makes liver disease unlikely. LFTs trending down.
Hypothyroidism -elevated free T4 (2.45) noted. Levothyroxine dose reduced. Recheck TSH in 4 weeks.
DM2 without hyperglycemia -hold metformin. Hemoglobin A1c 7.3%. Glucose 115 this am. Low resistance NovoLog scale. Hold Mounjaro and metformin while in the hospital.
Essential hypertension -stable.
Hyperlipidemia -hold rosuvastatin given elevated LFTs.
Ambulatory dysfunction -anticipate SNF on discharge. Continue PT/OT.
Chronic insomnia -uses Lunesta at bedtime chronically. Family to bring in from home.
Full code
Dispo -will need SNF when medically stable. Daughter updated at the bedside.
Anticipated Discharge: 24 - 48 hours
Subjective/Interval History
-
Date of Service: May 03, 2024
Patient seen and examined. Feeling better. No complaints.
Objective Data
-
Labs:
Laboratory Results
05/03/24
06:00
WBC 23.2 H
Hgb 10.5 L
Hct 32.5 L
Plt Count 366
Sodium 137
Potassium 4.6
Chloride 105
Carbon Dioxide 18 L
BUN 20 H
Creatinine 0.7
Glucose 115 H
Calcium 8.8
Total Bilirubin 0.5
AST 64 H
ALT 105 H
Alkaline Phosphatase 172 H
Vital Signs:
Vital Signs
Temp Pulse Resp BP Pulse Ox
98.2 F 75 18 117/60 98
05/03/24 07:30 05/03/24 08:37 05/03/24 07:30 05/03/24 08:37 05/03/24 07:30
I&O
05/02/24 05/03/24 05/04/24
06:59 06:59 06:59
Intake Total 1140 / 1140 1110 / 1110
Output Total 600 / 600 300 / 300
Balance 540 / 540 810 / 810
Review of Systems
-
History Source: Patient
All other systems: Reviewed and negative
[2024-05-03] MEDS: VITAMIN D3 (cholecalciferol) 50 MCG PO (14:47)
--- NOTE | 2024-05-03 15:27 | CHAP ---
Evelia was sleeping lightly, with her daughter visiting. She woke up, pleasantly confused, keeping her sense of humor. Emotional support provided.
--- NOTE | 2024-05-03 15:31 | W.PN.PUL3 ---
Today's Communication / Plan
-
Aspiration precautions
Continue with antibiotics, patient appears to be responding clinically
Chest x-ray also improved
Eventual follow-up CT chest in the next 4 weeks
Hopefully we can avoid need to involve CT surgery
Out of bed to chair, ambulate
Assessment
-
79-year-old woman with past medical history noted, complains of 3 months of coughing. For the last several weeks has fallen several times. Last time patient was not able to stand up for 6 hours. She was brought in by for evaluation
Community-acquired pneumonia-right upper lobe consolidation/pleural effusion on CAT scan of the cervical spine.
Chest x-ray 04/27/2024: Suspected loculated right pleural effusion with possible underlying pneumonia.
No evidence for mass on CAT scan on the right upper lobe 08/2023-l there was apparently a benign-appearing 4 mm lung nodule, ess likely lung mass but cannot rule out 100%.
Leukocytosis
Chronic cough for the last 3 months-unclear etiology
Acute kidney injury-volume depletion
Mild rhabdo after fall
Conditions present prior admission:
Mild intermittent asthma
Singular/albuterol HFA as needed/low-dose Flovent
Follows up at our office Dr. Gore and PEGGY
Mild obstructive sleep apnea-intolerant to CPAP
Weight loss and dental appliance as well as positional therapy recommended
Mild bronchiectasis post pneumonia x 2? Per record
Chronic insomnia
Hypothyroidism
Type 2 diabetes-on Mounjaro
Allergic rhinitis
Anxiety
GERD
Prior skin cancer
3 mm lung nodule on the right upper lobe CAT scan 08/2023
Rosacea
Assessment and plan:
Remains comfortable on room air
Feels right-sided chest discomfort has improved
Chest x-ray today with overall improved right pleural parenchymal process
Leukocytosis slowly improving
Reviewed CT chest findings- small, highly loculated right-sided pleural effusion extending to the apex. There is associated adjacent within the right upper and lower lobes. There is partial collapse with air bronchograms in the right middle lobe
which may represent pneumonia.
Daughter states patient has had multiple falls over the past week-prior admission.
Daughter attributes facial rash to being down on the floor for hours prior to being discovered by after recent fall
Chest x-ray 04/24 with improvement overall in the right side
Moving forward
Continue with treatment for presumed community-acquired pneumonia
Afebrile, Does not appear toxic.
Appears to be improving objectively and subjectively. Chest x-ray improved
White count/leukocytosis slowly improving
Loculations suggest chronicity
CT-guided sampling yielded 13 cc of serosanguineous fluid.
pH 7.22
culture of fluid negative so far-no WBC or organisms seen.
If cytology negative for malignancy, and there is no ongoing improvement with antibiotics and repeat imaging shows worsening loculations may need to get CT surgery involved for VATS. Will continue with ongoing follow-up.
Given improvement in chest x-ray and improvement in pain, will continue to follow conservatively
-
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 Continue to follow closely. To my exam she appears cooperative, calm and able to provide history.
Speech evaluation-patient states that she has been having some memory issues. CT head negative for acute abnormalities.
Correspondence reviewed. Regular texture diet with thin liquids. Aspiration precautions recommended. No evidence for overt aspiration.
She denies any significant swallowing problems or GERD.
It is encouraging that in August 2023 there was a tiny 4 mm right upper lobe lung nodule. Not highly suspicious.
Patient is a never smoker
Radiographic follow-up will be needed in the future to document resolution.
With history of asthma: Not bronchospastic on exam
Nebulizers as needed
Continue montelukast
Albuterol HFA as needed
Antitussives
Type 2 diabetes: Recently placed on Mounjaro due to increased hemoglobin A1c.
History of obstructive sleep apnea: Intolerant to CPAP
head of bed elevated
DVT prophylaxis heparin subcu
Reviewed with at bedside
She will follow-up in our office in the next 2 to 3 weeks after discharge. Last time saw Mirella WOODS.
Subjective Data
-
Date of Service:
Date of Service: May 03, 2024
Chief Complaint: Pulmonary Follow Up (Pneumonia/pleural effusion)
Subjective:
Patient continues to improve objectively and subjectively, denies right-sided pain. Feels breathing has improved. Has mild dry cough, nonproductive. at bedside. Patient examined earlier today, late entry
Objective Data
Data Reviewed
Vital Signs / I&O / Oxygen:
Vital Signs
Temp Pulse Resp BP Pulse Ox
98.2 F 75 18 117/60 98
05/03/24 07:30 05/03/24 08:37 05/03/24 07:30 05/03/24 08:37 05/03/24 07:30
Intake and Output
05/02/24 05/03/24 05/04/24
06:59 06:59 06:59
Intake Total 1140 / 1140 1110 / 1110
Output Total 600 / 600 300 / 300
Balance 540 / 540 810 / 810
SaO2 98
Physical Exam
General: Comfortable
HEENT: Normocephalic and Anicteric
Cardiovascular: S1-S2, Regular Rhythm, Murmur (n) and Rub (n)
Respiratory: Wheeze (n), Crackles (n), Non-Labored Respirations, Stridor (n) and Other (Slightly decreased right base)
GI: Soft, Non Distended and Non Tender
Neurology: Awake, Alert and No Motor Deficits (Generally weak, moves all extremities)
Skin: Other (Rosacea, facial rash involving cheeks and chin, scaling, improved)
Labs/Micro/Reports
Lab Data
05/03/24 06:00
05/03/24 06:00
Microbiology
05/02/24 17:17 Sputum Gram Stain - Preliminary
04/30/24 11:41 Pleural Fluid Body Fluid Culture - Final
No Growth After 72 Hours
04/30/24 11:41 Pleural Fluid Gram Stain - Final
04/27/24 10:23 Blood/Venous Blood Culture - Final
No Growth - Final Report
04/27/24 10:27 Blood/Venous Blood Culture - Final
No Growth - Final Report
[2024-05-03 15:50] VITALS: BP 130/67
[2024-05-03 17:14] LABS: Glucose - Point of Care 121 mg/dl (70-99)
[2024-05-03] MEDS: XANAX 0.25 MG PO (17:16)
[2024-05-03 21:05] LABS: Glucose - Point of Care 163 mg/dl (70-99)
[2024-05-03] MEDS: SINGULAIR 10 MG PO (21:56)
[2024-05-03 23:15] VITALS: BP 125/61
[2024-05-04] MEDS: SYNTHROID 150 MCG PO (05:50)
[2024-05-04] MEDS: SYNTHROID 25 MCG PO (05:51)
[2024-05-04 06:00] VITALS: BMI 30.9
[2024-05-04 07:41] VITALS: BP 127/55
[2024-05-04 07:41] LABS: Glucose - Point of Care 112 mg/dl (70-99)
[2024-05-04] MEDS: MIRALAX 17 GRAMS PO (08:07)
[2024-05-04] MEDS: NOVOLOG FLEXPEN-LOW RESISTANCE SC ×2 (08:07→17:03)
[2024-05-04] MEDS: HEPARIN 5000 UNITS SC ×2 (08:07→19:54)
[2024-05-04] MEDS: EFFEXOR XR 150 MG PO (08:07)
[2024-05-04] MEDS: RESTASIS 0.05% OPHTHALMIC EMULSION 1 DROPS BOTH EYES ×2 (08:08→19:55)
[2024-05-04] MEDS: PEPCID 20 MG PO (08:09)
[2024-05-04] MEDS: MUCINEX 600 MG PO ×2 (08:09→19:55)
[2024-05-04] MEDS: KCL 20 MEQ PO ×2 (08:09→19:55)
[2024-05-04] MEDS: ZYRTEC 10 MG PO (08:09)
[2024-05-04] MEDS: SENOKOT-S 1 TABLET PO ×2 (08:09→19:55)
[2024-05-04] MEDS: LOW STRENGTH ASPIRIN 81 MG PO (08:09)
[2024-05-04] MEDS: TOPROL XL 25 MG PO (08:10)
[2024-05-04] MEDS: FLAGYL 500 MG PO ×2 (08:10→19:55)
--- NOTE | 2024-05-04 09:18 | W.PN.PUL3 ---
Today's Communication / Plan
-
Aspiration precautions
Continue with antibiotics per ID, patient appears to be responding clinically
Chest x-ray from 05/02/2024 also improved which is encouraging
Eventual follow-up CT chest in the next 4 weeks
Hopefully we can avoid need to involve CT surgery for VATS
Out of bed to chair, ambulate
Assessment
-
79-year-old woman with past medical history noted, complains of 3 months of coughing. For the last several weeks has fallen several times. Last time patient was not able to stand up for 6 hours. She was brought in by for evaluation
Impression:
RML community-acquired pneumonia
Multiple loculated effusions in right hemithorax involving right upper lobe, right middle lobe + right lower lobe due to parapneumonic complicated effusion
Leukocytosis
Chronic cough for the last 3 months
Acute kidney injury-resolved
Mild rhabdo after fall (CK peaked at 437 on 04/27/2024)
Conditions present prior admission:
Mild intermittent asthma
Singular/albuterol HFA as needed/low-dose Flovent
Follows up at our office Dr. Gore and PEGGY
Mild obstructive sleep apnea-intolerant to CPAP
Weight loss and dental appliance as well as positional therapy recommended
Mild bronchiectasis post pneumonia x 2? Per record
Chronic insomnia
Hypothyroidism
Type 2 diabetes-on Mounjaro
Allergic rhinitis
Anxiety
GERD
Prior skin cancer
3 mm lung nodule on the right upper lobe CAT scan 08/2023
Rosacea
Assessment and plan:
Remains comfortable on room air
Feels right-sided chest discomfort has improved
Chest x-ray from 05/02/2024 with overall improved right pleural parenchymal process
Reviewed CT chest findings- small, highly loculated right-sided pleural effusion extending to the apex. There is associated adjacent atelectasis within the right upper and lower lobes. There is partial collapse with air bronchograms in the right
middle lobe which may represent pneumonia.
Daughter states patient has had multiple falls over the past week prior to admission.
Daughter attributes facial rash to being down on the floor for hours prior to being discovered by
Chest x-ray 05/02 with improvement overall in the right side
Moving forward
Continue with treatment for community-acquired pneumonia with parapneumonic complicated effusion
Antibiotics as per ID � currently on PO Flagyl + ceftriaxone s/p doxycycline from 04/27 - 05/01/2024
Trend WBC and monitor for fevers
Loculations suggest chronicity
CT-guided sampling yielded 13 cc of serosanguineous fluid with pH 7.22 and LDH: 1392
Follow-up pleural fluid culture; cytopathology is negative for malignancy
If there is no ongoing improvement with antibiotics and repeat imaging shows worsening loculations then would consult CT surgery for VATS. Will continue with ongoing follow-up.
Given improvement in chest x-ray and improvement in pain, will continue to follow conservatively
-
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 Continue to follow closely. To my exam she appears cooperative, calm and able to provide history.
CT head negative for acute abnormalities
Speech evaluation cleared for regular texture diet and thin liquids
Correspondence reviewed. Regular texture diet with thin liquids. Aspiration precautions recommended. No evidence for overt aspiration.
She denies any significant swallowing problems or GERD
It is encouraging that in August 2023 there was a tiny 4 mm right upper lobe lung nodule. Not highly suspicious.
Patient is a never smoker
Radiographic follow-up will be needed in the future to document resolution.
With history of asthma: Not bronchospastic on exam
Nebulizers as needed
Continue montelukast
Albuterol HFA as needed
Mucinex
Type 2 diabetes: Recently placed on Mounjaro due to increased hemoglobin A1c (7.3 on 04/24/2024)
History of obstructive sleep apnea: Intolerant to CPAP; can discuss as an outpatient
head of bed elevated
DVT prophylaxis: HSQ
Reviewed with at bedside
She will follow-up in our office in the next 2 to 3 weeks after discharge. Last time saw Mirella WOODS.
Pulmonary service will continue to follow along while she remains hospitalized.
Total time spent today was 36 minutes for this encounter. Time includes reviewing laboratory test/imaging results, reviewing pertinent medical records, obtaining and reviewing medical history, performing an appropriate exam, ordering medications,
tests and procedures. Time also includes documentation of this encounter, coordinating patient care and communicating with other healthcare professionals. Total time does not include separately billed tests performed on this date of service.
Subjective Data
-
Date of Service:
Date of Service: May 04, 2024
Chief Complaint: Pulmonary Follow Up (Pneumonia/pleural effusion)
Subjective:
Patient seen this morning. She feels tired mainly. On room air breathing comfortably. Renate, patient's daughter, at bedside and all questions were answered. Patient resting in bed and denies chest pain, FAJARDO, abdominal pain, nausea, fevers or
chills.
Review of Systems
General: Other (Negative unless mentioned above)
Objective Data
Data Reviewed
Vital Signs / I&O / Oxygen:
Vital Signs
Temp Pulse Resp BP Pulse Ox
98.3 F 70 16 127/55 91
05/04/24 07:41 05/04/24 08:10 05/04/24 07:41 05/04/24 08:10 05/04/24 07:41
Intake and Output
05/03/24 05/04/24 05/05/24
06:59 06:59 06:59
Intake Total 1110 / 1110 840 / 840
Output Total 300 / 300
Balance 810 / 810 840 / 840
SaO2 91
Physical Exam
General: Respiratory Distress (negative), Comfortable, Chills (negative) and Sweats (negative)
HEENT: Normocephalic and Anicteric
Cardiovascular: S1-S2, Murmur (n), Rub (n) and Peripheral Edema (negative)
Respiratory: Wheeze (n), Crackles (n), Rhonchi (Right hemithorax), Non-Labored Respirations, Stridor (n) and Other (Slightly decreased right base)
GI: Soft, Non Distended, Non Tender and Normal Bowel Sounds
Neurology: Awake, Alert, No Motor Deficits (Generally weak, moves all extremities) and Tremors (negative)
Skin: Warm, Dry, Cyanosis (negative), Jaundice (negative) and Other (Rosacea, facial rash involving cheeks and chin, scaling, improved)
Labs/Micro/Reports
Lab Data
05/04/24 07:22
05/04/24 07:22
Microbiology
05/02/24 17:17 Sputum Respiratory Culture - Preliminary
Sally albicans
05/02/24 17:17 Sputum Gram Stain - Preliminary
04/30/24 11:41 Pleural Fluid Body Fluid Culture - Final
No Growth After 72 Hours
04/30/24 11:41 Pleural Fluid Gram Stain - Final
04/27/24 10:23 Blood/Venous Blood Culture - Final
No Growth - Final Report
04/27/24 10:27 Blood/Venous Blood Culture - Final
No Growth - Final Report
[2024-05-04 09:21] LABS: % Basophils 0.4 % (0-2); % Eosinophils 1.5 % (0-6); % Immature Granulocytes 3.4 % (0-0.5); % Lymphocytes 13.3 % (20.5-51.1); % Monocytes 4.4 % (1.7-9.3); Absolute Basophils 0.1 10^3/uL (0-0.2); Absolute Eosinophils 0.3 10^3/uL (0-0.7); Absolute Immature Granulocytes 0.7 10^3/uL (0-0.05); Absolute Lymphocytes 2.6 10^3/uL (1.2-3.4); Absolute Monocytes 0.9 10^3/uL (0.1-0.6); Absolute Neutrophils 15.2 10^3/uL (1.4-6.5); Mean Corp Hgb Conc. 31.3 g/dL (33.0-37.0); Mean Corpuscular Hgb 28.6 pg (27.0-31.0); Mean Corpuscular Volume 91.4 fL (81.0-99.0); Nucleated Red Blood Cells % 0 %; Platelet Count 396 10^3/uL (130-400); Red Cell Dist. Width 15.9 % (11.5-14.5); White Blood Cell Count 19.8 10^3/uL (4.8-10.8)
[2024-05-04 09:51] LABS: ALT (SGPT) 96 U/L (0-35); AST (SGOT) 55 U/L (14-36); Albumin 2.7 g/dl (3.5-5.0); Alkaline Phosphatase 158 U/L (38-126); Blood Urea Nitrogen 19 mg/dl (7-17); Calcium 8.5 mg/dl (8.4-10.2); Carbon Dioxide 23 mmol/L (22-30); Chloride 103 mmol/L (98-107); Estimated Creatinine Clearance 62 ml/min; Glucose 108 mg/dl (70-99); Potassium 4.2 mmol/L (3.5-5.1); Sodium 138 mmol/L (135-145); Total Bilirubin 0.3 mg/dl (0.2-1.3); Total Protein 6.3 g/dl (6.3-8.2); eGFR > 60.00
[2024-05-04 10:04] VITALS: BP 131/63; PULSE 74; O2SAT 94
--- NOTE | 2024-05-04 10:35 | W.PN.ID1 ---
Date of Service
Date of Service: May 04, 2024
Today's Communication
- continue ceftriaxone, metronidazole, day 8
-Anticipate 4 -6 weeks of of ceftriaxone 2gIV q24 and metronidazole 500mg po bid through 06/01/24
Assessment / Plan
Probable Right Empyema
Leukocytosis trending down
Recurrent Falls
- cultures may be falsely negative due to previous antibiotics
- pH most consistent with empyema. LDH >1000
- on aspiration precautions
- Pleural fluid highly loculated.
- s/p thoracentesis 04/30 without chest tube placement.
-Fluid cytology still pending
- repeat CXR - slightly improving
- continue ceftriaxone, metronidazole, day 8
-Anticipate 4 -6 weeks of of ceftriaxone 2gIV q24 and metronidazole 500mg po bid through 05/31/24
-Infusion sheet submitted to case management.
- Place midline
Chief Complaint
-: Leukocytosis and Other (Suspected empyema)
Subjective / Review of Systems
No respiratory symptoms.
No diarrhea.
Vital Signs / Physical Exam
Vital Signs
Vital Signs
Temp Pulse Resp BP Pulse Ox
98.3 F 70 16 127/55 91
05/04/24 07:41 05/04/24 08:10 05/04/24 07:41 05/04/24 08:10 05/04/24 07:41
Physical Exam
Constitutional: No Acute Distress and Comfortable
Cardiovascular: Regular Rate and S1/S2
Pulmonary: Other (Decreased BS right base)
Gastrointestinal: Soft, Non Tender, Non Distended and Normal Bowel Sounds
Extremities: Negative Edema
Neurological: AO x 3
Objective Data
Lab Data
Lab Results
05/04/24 07:22
05/04/24 07:22
PT 16.1 Sec (11.4-14.6) H 04/29/24 11:58
INR 1.24 04/29/24 11:58
Estimated Creat Clear 62 ml/min 05/04/24 07:22
Lactic Acid 1.6 mmol/L (0.7-2.0) 04/27/24 10:23
Total Bilirubin 0.3 mg/dl (0.2-1.3) 05/04/24 07:22
GGT 22 U/L (12-43) 04/29/24 06:30
AST 55 U/L (14-36) H 05/04/24 07:22
ALT 96 U/L (0-35) H 05/04/24 07:22
Alkaline Phosphatase 158 U/L (38-126) H 05/04/24 07:22
Most recent labs reviewed.
Micro Results:
05/02/24 17:17 Respiratory Culture - Preliminary
Sputum Sally albicans
Gram Stain - Preliminary
04/30/24 11:41 Body Fluid Culture - Final
Pleural Fluid No Growth After 72 Hours
Gram Stain - Final
04/27/24 10:23 Blood Culture - Final
Blood/Venous No Growth - Final Report
04/27/24 10:27 Blood Culture - Final
Blood/Venous No Growth - Final Report
04/27/24 19:38 MRSA Screen - Final
Nose No Methicillin Resistant Staphylococcus aureus isolated.
04/27/24 09:53 Urine Culture - Final
Urine NO GROWTH
04/27/24 09:45 Influenza Types A & B (STEVEN) - Final
Nasal Swab Negative for Influenza A & B, NAAT
Negative results must be combined with clinical observations
and patient history.
Nucleic Acid Amplification test (NAAT)performed on the
[employer] ID NOW platform.
04/27/24 08:47 Influenza Types A & B (STEVEN) - Final
Nasal Swab Test repeatedly invalid.
Nucleic Acid Amplification test (NAAT)performed on the
[employer] NOW platform.
05/02/24 CXR: Moderate loculated right pleural effusion, slightly improved. Bibasilar atelectasis, improved.
[2024-05-04] MEDS: STERILE WATER FOR INJECTION 20 ML IV (10:58)
[2024-05-04] MEDS: ROCEPHIN 2000 MG IV (10:59)
[2024-05-04 11:18] LABS: Glucose - Point of Care 165 mg/dl (70-99)
--- NOTE | 2024-05-04 12:12 | W.PN.HOSP.TC ---
Today's Communication/Plan
-
Monitor vital signs see plan
Continue with antibiotics per infectious disease
Pulmonary to see today
PT/OT
Cytology pending
Assessment / Plan
Assessment / Plan
Gen-AAOx3, NAD
HEENT-NC, AT, anicteric, clear oral mm, erythema of bilateral cheeks and chin
Neck-supple
CV-reg, no M, +S1/S2
Lungs-clear B/L
Abd-soft, NT, ND
Ext-no edema
Musculoskeletal-no cyanosis
Skin-warm and dry
Neuro-grossly non-focal
Psych-calm, cooperative
Sepsis due to community-acquired pneumonia -dedicated chest CT shows small highly loculated right-sided pleural effusion extending to the apex. Associated adjacent air bronchograms in the right middle lobe and atelectasis in the right upper and
lower lobes. Continue antibiotics per ID. Now on ceftriaxone and metronidazole per ID. Blood cultures negative so far. She is not hypoxic.
WBCs trending down.
Prior CT chest from August of this year suggested a 3 mm nodule in the anterior right upper lobe.
3-month cough is concerning for underlying pulmonary process. Cleared for regular diet by speech therapy.
Influenza and COVID-negative.
If symptoms do not improve then likely will need CT surgery evaluation
Pulmonary following
Mild right pleural effusion -loculated effusion, possible empyema per ID. CT-guided aspiration performed 04/30, 13 cc straw-colored pleural fluid sent for culture. Gram stain negative, culture negative so far. Cytology pending. Fluid is
loculated. May need CT surgery involvement if no improvement. However, chest x-ray from 05/02 demonstrates improving right sided infiltrate/effusion.
Volume depletion -improved.
Mild traumatic rhabdomyolysis -down on the ground for quite some time before her found her. CPK trended down.
Hypokalemia -resolved.
Elevated transaminases -suspect muscle origin. Hold rosuvastatin. Normal GGT makes liver disease unlikely. LFTs trending down.
Hypothyroidism -elevated free T4 (2.45) noted. Levothyroxine dose reduced. Recheck TSH in 4 weeks.
DM2 without hyperglycemia -hold metformin. Hemoglobin A1c 7.3%. Low resistance NovoLog scale. Hold Mounjaro and metformin while in the hospital.
Essential hypertension -stable.
Hyperlipidemia -hold rosuvastatin given elevated LFTs.
Ambulatory dysfunction -anticipate SNF on discharge. Continue PT/OT.
Chronic insomnia -uses Lunesta at bedtime chronically. Family to bring in from home.
Full code
Dispo -will need SNF when medically stable.
Anticipated Discharge: 24 - 48 hours
Subjective/Interval History
-
Date of Service: May 04, 2024
Denies pain
Objective Data
-
Labs:
Laboratory Results
05/04/24
07:22
WBC 19.8 H
Hgb 10.0 L
Hct 32.0 L
Plt Count 396
Sodium 138
Potassium 4.2
Chloride 103
Carbon Dioxide 23
BUN 19 H
Creatinine 0.7
Glucose 108 H
Calcium 8.5
Total Bilirubin 0.3
AST 55 H
ALT 96 H
Alkaline Phosphatase 158 H
Vital Signs:
Vital Signs
Temp Pulse Resp BP Pulse Ox
98.3 F 70 16 127/55 91
05/04/24 07:41 05/04/24 08:10 05/04/24 07:41 05/04/24 08:10 05/04/24 07:41
I&O
05/03/24 05/04/24 05/05/24
06:59 06:59 06:59
Intake Total 1110 / 1110 840 / 840
Output Total 300 / 300
Balance 810 / 810 840 / 840
--- NOTE | 2024-05-04 13:01 | CM ---
Addendum entered by HUBERT Petersen 05/04/24 13:14:
Faxed ABX script to [facility]. Awaiting confirmation that they can accept.
Original Note:
Reviewed [employer] and the following facilities offered acceptance upon bed availability of day of discharge: [facility], [facility], [facility] and [facility]. Met with patient and her family who was at bedside. Patient's spouse
stated that he would like either [facility] or [facility]. Spoke with ID who stated that patient will need, 4 -6 weeks of of ceftriaxone 2gIV q24 and metronidazole 500mg po bid through 06/01/24
Spoke with Cally in admissions at both [facility] and [facility]. She stated that [facility] has a bed, however she has to verify that the facility can handle the costs of the medications.
[facility] will fax to [phone] for facility review.
Cally stated that she will return call to CM after script received at facility and reviewed.
Plan: Case management will continue to follow and assist with discharge planning. SNF when stable. Hoping [facility].
[2024-05-04] MEDS: NOVOLOG FLEXPEN-LOW RESISTANCE 1 UNITS SC (13:42)
[2024-05-04 14:10] VITALS: BMI 30.9
[2024-05-04] MEDS: VITAMIN D3 (cholecalciferol) 50 MCG PO (14:56)
[2024-05-04 15:04] VITALS: BP 124/53
[2024-05-04 16:34] LABS: Glucose - Point of Care 133 mg/dl (70-99)
[2024-05-04] MEDS: XANAX 0.25 MG PO (17:21)
[2024-05-04] MEDS: NON-FORMULARY ITEM 1 UNIT PO (19:55)
[2024-05-04] MEDS: SINGULAIR 10 MG PO (19:57)
[2024-05-04 21:19] LABS: Glucose - Point of Care 129 mg/dl (70-99)
[2024-05-04 23:55] VITALS: BP 127/54
[2024-05-05] MEDS: SYNTHROID 150 MCG PO (05:28)
[2024-05-05] MEDS: SYNTHROID 25 MCG PO (05:28)
[2024-05-05 05:39] LABS: % Basophils 0.4 % (0-2); % Eosinophils 2.2 % (0-6); % Lymphocytes 17.6 % (20.5-51.1); % Monocytes 5.6 % (1.7-9.3); % Neutrophils 71.2 % (42.2-75.2); Absolute Basophils 0.1 10^3/uL (0-0.2); Absolute Eosinophils 0.4 10^3/uL (0-0.7); Absolute Immature Granulocytes 0.6 10^3/uL (0-0.05); Absolute Lymphocytes 3.3 10^3/uL (1.2-3.4); Absolute Monocytes 1.1 10^3/uL (0.1-0.6); Absolute Neutrophils 13.3 10^3/uL (1.4-6.5); Hematocrit 29.2 % (37.0-47.0); Hemoglobin 9.2 g/dL (12.0-16.0); Mean Corp Hgb Conc. 31.5 g/dL (33.0-37.0); Mean Platelet Volume 8.8 fL (7.4-10.4); Nucleated Red Blood Cells % 0.1 %; Platelet Count 360 10^3/uL (130-400); Red Blood Cell Count 3.28 10^6/uL (4.20-5.40); Red Cell Dist. Width 15.6 % (11.5-14.5); White Blood Cell Count 18.7 10^3/uL (4.8-10.8)
[2024-05-05 05:55] LABS: ALT (SGPT) 83 U/L (0-35); AST (SGOT) 49 U/L (14-36); Albumin 2.4 g/dl (3.5-5.0); Alkaline Phosphatase 129 U/L (38-126); Blood Urea Nitrogen 19 mg/dl (7-17); Calcium 8.5 mg/dl (8.4-10.2); Carbon Dioxide 25 mmol/L (22-30); Chloride 105 mmol/L (98-107); Estimated Creatinine Clearance 62 ml/min; Glucose 121 mg/dl (70-99); Potassium 4.4 mmol/L (3.5-5.1); Sodium 136 mmol/L (135-145); Total Bilirubin 0.2 mg/dl (0.2-1.3); eGFR > 60.00
[2024-05-05 05:57] VITALS: BMI 30.8
[2024-05-05 07:35] VITALS: BP 142/59
[2024-05-05 07:53] LABS: Glucose - Point of Care 119 mg/dl (70-99)
[2024-05-05] MEDS: MUCINEX 600 MG PO ×2 (08:09→20:07)
[2024-05-05] MEDS: KCL 20 MEQ PO ×2 (08:10→20:06)
[2024-05-05] MEDS: FLAGYL 500 MG PO ×2 (08:10→20:10)
[2024-05-05] MEDS: PEPCID 20 MG PO (08:10)
[2024-05-05] MEDS: TOPROL XL 25 MG PO (08:10)
[2024-05-05] MEDS: EFFEXOR XR 150 MG PO (08:10)
[2024-05-05] MEDS: LOW STRENGTH ASPIRIN 81 MG PO (08:10)
[2024-05-05] MEDS: MIRALAX 17 GRAMS PO (08:11)
[2024-05-05] MEDS: ZYRTEC 10 MG PO (08:11)
[2024-05-05] MEDS: SENOKOT-S 1 TABLET PO (08:11)
[2024-05-05] MEDS: HEPARIN 5000 UNITS SC ×2 (08:11→20:06)
[2024-05-05] MEDS: RESTASIS 0.05% OPHTHALMIC EMULSION 1 DROPS BOTH EYES ×2 (08:11→20:07)
[2024-05-05] MEDS: NOVOLOG FLEXPEN-LOW RESISTANCE SC ×2 (08:12→13:50)
--- NOTE | 2024-05-05 09:12 | W.PN.PUL3 ---
Today's Communication / Plan
-
Aspiration precautions
Continue with antibiotics per ID, patient appears to be responding clinically
Chest x-ray from 05/02/2024 also improved which is encouraging
Eventual follow-up CT chest in the next 4 weeks
Hopefully we can avoid need to involve CT surgery for VATS
Out of bed to chair, ambulate
Disposition efforts (awaiting SNF)
Assessment
-
79-year-old woman with past medical history noted, complains of 3 months of coughing. For the last several weeks has fallen several times. Last time patient was not able to stand up for 6 hours. She was brought in by for evaluation
Impression:
RML community-acquired pneumonia
Multiple loculated effusions in right hemithorax involving right upper lobe, right middle lobe + right lower lobe due to parapneumonic complicated effusion
Leukocytosis
Chronic cough for the last 3 months
Acute kidney injury-resolved
Mild rhabdo after fall (CK peaked at 437 on 04/27/2024)
Conditions present prior admission:
Mild intermittent asthma
Singular/albuterol HFA as needed/low-dose Flovent
Follows up at our office Dr. Gore and PEGGY
Mild obstructive sleep apnea-intolerant to CPAP
Weight loss and dental appliance as well as positional therapy recommended
Mild bronchiectasis post pneumonia x 2? Per record
Chronic insomnia
Hypothyroidism
Type 2 diabetes-on Mounjaro
Allergic rhinitis
Anxiety
GERD
Prior skin cancer
3 mm lung nodule on the right upper lobe CAT scan 08/2023
Rosacea
Assessment and plan:
Remains comfortable on room air
Feels right-sided chest discomfort has improved
Chest x-ray from 05/02/2024 with overall improved right pleural parenchymal process
Reviewed CT chest findings- small, highly loculated right-sided pleural effusion extending to the apex. There is associated adjacent atelectasis within the right upper and lower lobes. There is partial collapse with air bronchograms in the right
middle lobe which may represent pneumonia.
Daughter states patient has had multiple falls over the past week prior to admission.
Daughter attributes facial rash to being down on the floor for hours prior to being discovered by
Chest x-ray 05/02 with improvement overall in the right side
Moving forward
Continue with treatment for community-acquired pneumonia with parapneumonic complicated effusion
Antibiotics as per ID � currently on PO Flagyl + ceftriaxone s/p doxycycline from 04/27 - 05/01/2024
Trend WBC and monitor for fevers
Loculations suggest chronicity
CT-guided sampling yielded 13 cc of serosanguineous fluid with pH 7.22 and LDH: 1392
Follow-up pleural fluid culture (NGTD); cytopathology is negative for malignancy
If there is no ongoing improvement with antibiotics and repeat imaging shows worsening loculations then would consult CT surgery for VATS. Will continue with ongoing follow-up.
Given improvement in chest x-ray and improvement in pain, will continue to follow conservatively
-
Continues to have some memory issues, making phone calls to family in the gear gr[place] it does not recall-perhaps some component of delirium. Continue to follow closely. To my exam she appears cooperative, calm and able to provide history.
CT head negative for acute abnormalities
Speech evaluation cleared for regular texture diet and thin liquids
Correspondence reviewed. Regular texture diet with thin liquids. Aspiration precautions recommended. No evidence for overt aspiration.
She denies any significant swallowing problems or GERD
It is encouraging that in August 2023 there was a tiny 4 mm right upper lobe lung nodule. Not highly suspicious.
Patient is a never smoker
Radiographic follow-up will be needed in the future to document resolution.
With history of asthma: Not bronchospastic on exam
Nebulizers as needed
Continue montelukast
Albuterol HFA as needed
Mucinex
Type 2 diabetes: Recently placed on Mounjaro due to increased hemoglobin A1c (7.3 on 04/24/2024)
History of obstructive sleep apnea: Intolerant to CPAP; can discuss as an outpatient
head of bed elevated
DVT prophylaxis: HSQ
Reviewed with at bedside
She will follow-up in our office in the next 2 to 3 weeks after discharge. Last time saw Mirella WOODS.
Pulmonary service will continue to follow along while she remains hospitalized.
Total time spent today was 38 minutes for this encounter. Time includes reviewing laboratory test/imaging results, reviewing pertinent medical records, obtaining and reviewing medical history, performing an appropriate exam, ordering medications,
tests and procedures. Time also includes documentation of this encounter, coordinating patient care and communicating with other healthcare professionals. Total time does not include separately billed tests performed on this date of service.
Subjective Data
-
Date of Service:
Date of Service: May 05, 2024
Chief Complaint: Pulmonary Follow Up (Pneumonia/pleural effusion)
Subjective:
Patient seen and evaluated today at bedside. Patient's , Sebastian, at bedside. All questions were answered. Patient remains on room air and is breathing [place]. She denies shortness of breath, chest pain, FAJARDO, nausea, fevers or chills.
Review of Systems
General: Other (Negative unless mentioned above)
Objective Data
Data Reviewed
Vital Signs / I&O / Oxygen:
Vital Signs
Temp Pulse Resp BP Pulse Ox
97.8 F 68 17 142/59 94
05/05/24 07:35 05/05/24 07:35 05/05/24 07:35 05/05/24 07:35 05/05/24 07:35
Intake and Output
05/04/24 05/05/24 05/06/24
06:59 06:59 06:59
Intake Total 840 / 840 1080 / 1080
Balance 840 / 840 1080 / 1080
SaO2 94
Physical Exam
General: Respiratory Distress (negative), Comfortable, Chills (negative) and Sweats (negative)
HEENT: Normocephalic and Anicteric
Cardiovascular: S1-S2, Murmur (n), Rub (n) and Peripheral Edema (negative)
Respiratory: Wheeze (n), Crackles (Bilaterally), Rhonchi (Right hemithorax), Non-Labored Respirations, Stridor (n) and Other (Slightly decreased right base)
GI: Soft, Non Distended, Non Tender and Normal Bowel Sounds
Neurology: Awake, Alert, No Motor Deficits (Generally weak, moves all extremities) and Tremors (negative)
Skin: Warm, Dry, Cyanosis (negative), Jaundice (negative) and Other (Rosacea, facial rash involving cheeks and chin, scaling, improved)
Labs/Micro/Reports
Lab Data
05/05/24 05:22
05/05/24 05:22
Microbiology
05/02/24 17:17 Sputum Respiratory Culture - Final
Sally albicans
05/02/24 17:17 Sputum Gram Stain - Final
04/30/24 11:41 Pleural Fluid Body Fluid Culture - Final
No Growth After 72 Hours
04/30/24 11:41 Pleural Fluid Gram Stain - Final
04/27/24 10:23 Blood/Venous Blood Culture - Final
No Growth - Final Report
04/27/24 10:27 Blood/Venous Blood Culture - Final
No Growth - Final Report
[2024-05-05] MEDS: ROCEPHIN 2000 MG IV (10:21)
[2024-05-05] MEDS: STERILE WATER FOR INJECTION 20 ML IV (10:21)
[2024-05-05 11:42] LABS: Glucose - Point of Care 107 mg/dl (70-99)
--- NOTE | 2024-05-05 11:43 | W.PN.HOSP.TC ---
Addendum entered and electronically signed by Jesús Campos MD 05/05/24 12:24:
Discharge today to SNF
Time of discharge 39 minutes
Original Note:
Today's Communication/Plan
-
monitor vitals
see plan
cw abx per ID
dc planning
Discussed with at bedside
Assessment / Plan
Assessment / Plan
Gen-AAOx3, NAD
HEENT-NC, AT, anicteric, clear oral mm, erythema of bilateral cheeks and chin
Neck-supple
CV-reg, no M, +S1/S2
Lungs-clear B/L
Abd-soft, NT, ND
Ext-no edema
Musculoskeletal-no cyanosis
Skin-warm and dry
Neuro-grossly non-focal
Psych-calm, cooperative
Sepsis due to community-acquired pneumonia -dedicated chest CT shows small highly loculated right-sided pleural effusion extending to the apex. Associated adjacent air bronchograms in the right middle lobe and atelectasis in the right upper and
lower lobes. Continue antibiotics per ID. Now on ceftriaxone and metronidazole per ID. Blood cultures negative so far. She is not hypoxic.
WBCs trending down.
Prior CT chest from August of this year suggested a 3 mm nodule in the anterior right upper lobe.
3-month cough is concerning for underlying pulmonary process. Cleared for regular diet by speech therapy.
Influenza and COVID-negative.
If symptoms do not improve then likely will need CT surgery evaluation
Pulmonary following
per ID Anticipate 4 -6 weeks of of ceftriaxone 2gIV q24 and metronidazole 500mg po bid through 06/01/24. now has midline.
Mild right pleural effusion -loculated effusion, possible empyema per ID. CT-guided aspiration performed 04/30, 13 cc straw-colored pleural fluid sent for culture. Gram stain negative, culture negative so far. Cytology neg for malignant cells.
Fluid is loculated. May need CT surgery involvement if no improvement. However, chest x-ray from 05/02 demonstrates improving right sided infiltrate/effusion.
repeat CXT outpatient per pulmonary
Volume depletion -improved.
Mild traumatic rhabdomyolysis -down on the ground for quite some time before her found her. CPK trended down.
Hypokalemia -resolved.
Elevated transaminases -suspect muscle origin. Hold rosuvastatin. Normal GGT makes liver disease unlikely. LFTs trending down.
Hypothyroidism -elevated free T4 (2.45) noted. Levothyroxine dose reduced. Recheck TSH in 4 weeks.
DM2 without hyperglycemia -hold metformin. Hemoglobin A1c 7.3%. Low resistance NovoLog scale. Hold Mounjaro and metformin while in the hospital.
Essential hypertension -stable.
Hyperlipidemia -hold rosuvastatin given elevated LFTs.
Ambulatory dysfunction -anticipate SNF on discharge. Continue PT/OT.
Chronic insomnia -uses Lunesta at bedtime chronically. Family to bring in from home.
Full code
Dispo -SNF with abx
Anticipated Discharge: Today
Subjective/Interval History
-
Date of Service: May 05, 2024
denies pain
Objective Data
-
Labs:
Laboratory Results
05/05/24
05:22
WBC 18.7 H
Hgb 9.2 L
Hct 29.2 L
Plt Count 360
Sodium 136
Potassium 4.4
Chloride 105
Carbon Dioxide 25
BUN 19 H
Creatinine 0.7
Glucose 121 H
Calcium 8.5
Total Bilirubin 0.2
AST 49 H
ALT 83 H
Alkaline Phosphatase 129 H
Vital Signs:
Vital Signs
Temp Pulse Resp BP Pulse Ox
97.8 F 68 17 142/59 94
05/05/24 07:35 05/05/24 07:35 05/05/24 07:35 05/05/24 07:35 05/05/24 07:35
I&O
05/04/24 05/05/24 05/06/24
06:59 06:59 06:59
Intake Total 840 / 840 1080 / 1080
Balance 840 / 840 1080 / 1080
--- NOTE | 2024-05-05 12:07 | W.PN.ID1 ---
Date of Service
Date of Service: May 05, 2024
Today's Communication
continue ceftriaxone 2g IV q24 and metronidazole 500mg po bid through 05/30/24
Assessment / Plan
Probable Right Empyema
Leukocytosis trending down
Recurrent Falls
- cultures may be falsely negative due to previous antibiotics
- pH most consistent with empyema. LDH >1000
- on aspiration precautions
- Pleural fluid highly loculated.
- s/p thoracentesis 04/30 without chest tube placement.
-Fluid cytology negative malignancy
- repeat CXR - slightly improving
- continue ceftriaxone 2g IV q24 and metronidazole 500mg po bid through 05/30/24
- repeat Chest CT in 4 weeks per pulm.
- midline in place
-Follow-up with me in 2 to 3 weeks.
Chief Complaint
-: Leukocytosis and Other (Suspected empyema)
Subjective / Review of Systems
No complaints today.
Vital Signs / Physical Exam
Vital Signs
Vital Signs
Temp Pulse Resp BP Pulse Ox
97.8 F 68 17 142/59 94
05/05/24 07:35 05/05/24 07:35 05/05/24 07:35 05/05/24 07:35 05/05/24 07:35
Physical Exam
Constitutional: No Acute Distress and Comfortable
Pulmonary: Coarse (right base crackles)
Gastrointestinal: Soft, Non Tender, Non Distended and Normal Bowel Sounds
Lines: Other (RUE midline intact)
Objective Data
Lab Data
Lab Results
05/05/24 05:22
05/05/24 05:22
PT 16.1 Sec (11.4-14.6) H 04/29/24 11:58
INR 1.24 04/29/24 11:58
Estimated Creat Clear 62 ml/min 05/05/24 05:22
Lactic Acid 1.6 mmol/L (0.7-2.0) 04/27/24 10:23
Total Bilirubin 0.2 mg/dl (0.2-1.3) 05/05/24 05:22
GGT 22 U/L (12-43) 04/29/24 06:30
AST 49 U/L (14-36) H 05/05/24 05:22
ALT 83 U/L (0-35) H 05/05/24 05:22
Alkaline Phosphatase 129 U/L (38-126) H 05/05/24 05:22
Most recent labs reviewed.
Micro Results:
05/02/24 17:17 Respiratory Culture - Final
Sputum Sally albicans
Gram Stain - Final
04/30/24 11:41 Body Fluid Culture - Final
Pleural Fluid No Growth After 72 Hours
Gram Stain - Final
04/27/24 10:23 Blood Culture - Final
Blood/Venous No Growth - Final Report
04/27/24 10:27 Blood Culture - Final
Blood/Venous No Growth - Final Report
04/27/24 19:38 MRSA Screen - Final
Nose No Methicillin Resistant Staphylococcus aureus isolated.
04/27/24 09:53 Urine Culture - Final
Urine NO GROWTH
04/27/24 09:45 Influenza Types A & B (STEVEN) - Final
Nasal Swab Negative for Influenza A & B, NAAT
Negative results must be combined with clinical observations
and patient history.
Nucleic Acid Amplification test (NAAT)performed on the
[employer] NOW platform.
04/27/24 08:47 Influenza Types A & B (STEVEN) - Final
Nasal Swab Test repeatedly invalid.
Nucleic Acid Amplification test (NAAT)performed on the
[employer] NOW platform.
05/02/24 CXR: Moderate loculated right pleural effusion, slightly improved. Bibasilar atelectasis, improved.
--- NOTE | 2024-05-05 12:26 | W.DCSUMMARY ---
Discharge Summary
Discharge Data
Date of Admission: 04/27/24
Date of Discharge: 05/06/24
-
Pending Results: No
Hospital Course
79-year-old female with past medical history of hypothyroidism, diabetes mellitus, essential hypertension, hyperlipidemia, amatory dysfunction, chronic insomnia came to the hospital with sepsis secondary to community-acquired pneumonia. Patient did
had right-sided pleural effusion and had thoracentesis which showed empyema. Patient was seen by pulmonary and infectious disease throughout hospitalization. Cytology appeared to be negative for malignant cells. Prior to discharge pulmonary
recommended patient to follow-up with them and to have repeat CT outpatient. Infectious disease recommended 4 to 6 weeks of antibiotics and patient had midline placed prior to discharge. On this hospitalization patient also had elevated free T4 so
her levothyroxine dose was reduced. She was instructed to get repeat blood work in 4 weeks outpatient. She also had elevated transaminases for which her statin was held. Patient was also evaluated by physical therapy who recommended SNF. Once
her breathing continues to improve, she was then discharged to rehab on antibiotics with instructions to follow-up with all her physicians outpatient.
Discharge Plan
-
Patient Disposition: Long Term/SNF
Discharge Diagnosis/Procedures: Sepsis due to community-acquired pneumonia with loculated pleural effusion/Empyema
Mild traumatic rhabdomyolysis
Elevated LFT's
Elevated free t4
Diet: As tolerated
Activity: As tolerated
Driving Restrictions: Not until seen by your Dr
Bathing Restrictions: None
Blood Work: LFTs next week, TSH with reflex to free t4 in 4 weeks with primary care provider
Others Tests: CT chest in 4 weeks with Pulmonary
Activity Restrictions/Additional Instructions:
1. Continue ceftriaxone 2g IV q24h through 05/30/24.
2. Continue metronidazole 500mg po bid through 05/30/24, as tolerated.
3. Weekly CBC, CMP while on ceftriaxone.
Referrals:
Ann-Marie Razo MD [Family Provider] - in less than 1 week
Kelby Diaz MD [Active] - in two to three weeks
Gracy Storey MD [Active] - in two to three weeks (Call office to make appointment.)
Prescriptions:
New
acetaminophen 325 mg Tablet
650 mg PO Q6HPRN PRN (Reason: mild pain/ fever>100.5F) Qty: 0 0RF
polyethylene glycol 3350 17 gram Powder In Packet
17 g PO DAILY Qty: 0 0RF
sennosides-docusate sodium 8.6-50 mg Tablet
1 tab PO BID Qty: 0 0RF
metronidazole 500 mg Tablet
500 mg PO BID Qty: 0 0RF
levothyroxine 25 mcg Tablet
25 mcg PO DAILY @ 0600 Qty: 0 0RF
levothyroxine 150 mcg Tablet
150 mcg PO DAILY @ 0600 Qty: 0 0RF
ceftriaxone 2 gram Recon Soln
2,000 mg IV Q24H Qty: 0 0RF
Continued
aspirin 81 MG tablet,chewable
81 mg PO DAILY
montelukast 10 MG tablet
10 mg PO HS
fluticasone propionate 1 SPRAY spray,suspension
1 spray intranasal DAILY
Atrovent HFA 1 PUFF HFA aerosol inhaler
1 puff inhalation DAILYPRN PRN (Reason: wheezing, dyspnea)
cholecalciferol (vitamin D3) 2,000 UNIT tablet
2,000 unit PO DAILY@1500
Centrum Women 1 EACH tablet
1 ea PO DAILY
PreserVision AREDS-2 1 EACH capsule
1 ea PO BID
guaifenesin [Mucus Relief ER] 600 MG tablet extended release 12hr
600 mg PO Q12H
eszopiclone [Lunesta] 3 MG tablet
3 mg PO HSPRN PRN (Reason: sleep)
metoprolol succinate 25 MG tablet extended release 24 hr
25 mg PO DAILY Qty: 30 3RF
esomeprazole magnesium [Nexium] 40 MG capsule,delayed release(DR/EC)
40 mg PO DAILY Qty: 1 0RF
cetirizine [Zyrtec] 10 mg Tablet
10 mg PO DAILY
venlafaxine [Effexor XR] 150 mg Capsule,Extended Release 24hr
150 mg PO DAILY
Mounjaro 2.5 mg/0.5 mL Pen Injector
2.5 mg SC TU
Rx Instructions:
for 4 weeks
cyclosporine [Restasis] 0.05 % Dropperette
1 drp BOTH EYES Q12H
metformin 500 mg Tablet Extended Release 24 Hr
500 mg PO BID
benzonatate 100 mg Capsule
100 mg PO TIDPRN PRN (Reason: cough)
ibuprofen 600 mg Tablet
600 mg PO Q6HPRN PRN (Reason: moderate pain)
alprazolam 0.25 MG tablet
0.25 mg PO DAILYPRN PRN (Reason: anxiety) Qty: 3 0RF
Held
losartan 100 mg Tablet
100 mg PO DAILY
Hold Instructions: Restart when blood pressure is greater than 140/90
rosuvastatin [Crestor] 40 mg Tablet
40 mg PO QPM
Hold Instructions: Until LFTs normalize
Discontinued
levothyroxine 200 MCG tablet
200 mcg PO DAILY
doxycycline hyclate 100 mg Capsule
100 mg PO BID
Discharge Orders:
Discharge Patient (As Directed); Ordered 05/05/24
Ordered By: Jesús Campos
Discharge Date and Time
Discharge Date/Time: 05/06/24 12:51
Print Language: GHANAIAN
[2024-05-05 13:33] LABS: COVID-19 Antigen Negative (Negative)
[2024-05-05 15:19] VITALS: BP 119/60
--- NOTE | 2024-05-05 16:08 | CM ---
Spoke with Vee in admissions at [facility] who stated that she can accept patient. She asked for Covid test. She was advised of patient's need for IV ABX, and Midline. She confirmed that she would be able to accomodate. # For report [phone]
# fax [phone]. Attending updated.
Updated patient and her family who was at bedside. They all confirmed that they would like [facility] and that would be their preference over [facility]. Patient completed IMM. It was reviewed, now its on chart.
Received return call from Vee in admissions at [facility] who stated they they would have to accept patient tomorrow as they are not able to take more admissions today.
Notified attending.
Medical necessity and transfer sheet on chart for transfer tomorrow. Family agreeable to with transfer tomorrow.
Plan: Case management will continue to follow and assist with discharge planning. [facility] upon bed availability.
[2024-05-05 16:52] LABS: Glucose - Point of Care 190 mg/dl (70-99)
[2024-05-05] MEDS: NOVOLOG FLEXPEN-LOW RESISTANCE 1 UNITS SC (16:59)
[2024-05-05] MEDS: VITAMIN D3 (cholecalciferol) 50 MCG PO (17:00)
[2024-05-05] MEDS: XANAX 0.25 MG PO (17:58)
[2024-05-05] MEDS: NON-FORMULARY ITEM 1 UNIT PO (20:07)
[2024-05-05] MEDS: SENOKOT-S PO (20:08)
[2024-05-05] MEDS: SINGULAIR 10 MG PO (20:08)
[2024-05-05 21:08] LABS: Glucose - Point of Care 97 mg/dl (70-99)
[2024-05-05 23:15] VITALS: BP 123/61
[2024-05-06] MEDS: SYNTHROID 150 MCG PO (05:15)
[2024-05-06] MEDS: SYNTHROID 25 MCG PO (05:15)
[2024-05-06 05:30] VITALS: BMI 30.7
[2024-05-06 07:00] VITALS: BP 129/62
[2024-05-06 07:04] LABS: ALT (SGPT) 66 U/L (0-35); AST (SGOT) 34 U/L (14-36); Albumin 2.6 g/dl (3.5-5.0); Alkaline Phosphatase 132 U/L (38-126); Blood Urea Nitrogen 15 mg/dl (7-17); Calcium 8.7 mg/dl (8.4-10.2); Carbon Dioxide 23 mmol/L (22-30); Chloride 104 mmol/L (98-107); Estimated Creatinine Clearance 62 ml/min; Glucose 126 mg/dl (70-99); Potassium 4.4 mmol/L (3.5-5.1); Sodium 137 mmol/L (135-145); Total Bilirubin 0.2 mg/dl (0.2-1.3); Total Protein 6.4 g/dl (6.3-8.2); eGFR > 60.00
[2024-05-06 07:26] LABS: % Basophils 0.5 % (0-2); % Eosinophils 1.9 % (0-6); % Immature Granulocytes 2.1 % (0-0.5); % Lymphocytes 14.6 % (20.5-51.1); % Monocytes 4.3 % (1.7-9.3); % Neutrophils 76.6 % (42.2-75.2); Absolute Basophils 0.1 10^3/uL (0-0.2); Absolute Eosinophils 0.4 10^3/uL (0-0.7); Absolute Immature Granulocytes 0.4 10^3/uL (0-0.05); Absolute Lymphocytes 2.7 10^3/uL (1.2-3.4); Absolute Monocytes 0.8 10^3/uL (0.1-0.6); Absolute Neutrophils 13.9 10^3/uL (1.4-6.5); Hematocrit 31.7 % (37.0-47.0); Mean Corp Hgb Conc. 31.5 g/dL (33.0-37.0); Mean Corpuscular Hgb 27.9 pg (27.0-31.0); Mean Corpuscular Volume 88.5 fL (81.0-99.0); Nucleated Red Blood Cells % 0 %; Platelet Count 435 10^3/uL (130-400); Red Blood Cell Count 3.58 10^6/uL (4.20-5.40); Red Cell Dist. Width 16.2 % (11.5-14.5); White Blood Cell Count 18.2 10^3/uL (4.8-10.8)
[2024-05-06 07:59] LABS: Glucose - Point of Care 113 mg/dl (70-99)
[2024-05-06] MEDS: LOW STRENGTH ASPIRIN 81 MG PO (10:27)
[2024-05-06] MEDS: EFFEXOR XR 150 MG PO (10:28)
[2024-05-06] MEDS: FLAGYL 500 MG PO (10:28)
[2024-05-06] MEDS: KCL 20 MEQ PO (10:28)
[2024-05-06] MEDS: ZYRTEC 10 MG PO (10:29)
[2024-05-06] MEDS: RESTASIS 0.05% OPHTHALMIC EMULSION 1 DROPS BOTH EYES (10:29)
[2024-05-06] MEDS: SENOKOT-S 1 TABLET PO (10:29)
[2024-05-06] MEDS: MUCINEX 600 MG PO (10:29)
[2024-05-06] MEDS: PEPCID 20 MG PO (10:29)
[2024-05-06] MEDS: TOPROL XL 25 MG PO (10:29)
[2024-05-06] MEDS: NOVOLOG FLEXPEN-LOW RESISTANCE SC (10:30)
[2024-05-06] MEDS: MIRALAX PO (10:30)
[2024-05-06] MEDS: HEPARIN SC (10:30)
--- NOTE | 2024-05-06 10:41 | CM ---
Patient for discharge to [facility] today. Patient ambulance for transfer today at 12:15pm. Nursing gave report to [facility]. CM called to update patient , VM left. CM will continue to follow for discharge planning needs.
Plan; SNF transfer today
--- NOTE | 2024-05-06 11:14 | W.PN.HOSP.TC ---
Today's Communication/Plan
-
Monitor vitals
See plan
Discharged today to [facility] on IV antibiotics
Monitor leukocytosis
Discussed with at bedside
Time of discharge 39 minutes
Assessment / Plan
Assessment / Plan
Gen-AAOx3, NAD
HEENT-NC, AT, anicteric, clear oral mm, erythema of bilateral cheeks and chin
Neck-supple
CV-reg, no M, +S1/S2
Lungs-clear B/L
Abd-soft, NT, ND
Ext-no edema
Musculoskeletal-no cyanosis
Skin-warm and dry
Neuro-grossly non-focal
Psych-calm, cooperative
Sepsis due to community-acquired pneumonia -dedicated chest CT shows small highly loculated right-sided pleural effusion extending to the apex. Associated adjacent air bronchograms in the right middle lobe and atelectasis in the right upper and
lower lobes. Continue antibiotics per ID. Now on ceftriaxone and metronidazole per ID. Blood cultures negative so far. She is not hypoxic.
WBCs trending down.
Prior CT chest from August of this year suggested a 3 mm nodule in the anterior right upper lobe.
3-month cough is concerning for underlying pulmonary process. Cleared for regular diet by speech therapy.
Influenza and COVID-negative.
If symptoms do not improve then likely will need CT surgery evaluation
Pulmonary following
per ID Anticipate 4 -6 weeks of of ceftriaxone 2gIV q24 and metronidazole 500mg po bid through 06/01/24. now has midline.
Mild right pleural effusion -loculated effusion, possible empyema per ID. CT-guided aspiration performed 04/30, 13 cc straw-colored pleural fluid sent for culture. Gram stain negative, culture negative so far. Cytology neg for malignant cells.
Fluid is loculated. May need CT surgery involvement if no improvement. However, chest x-ray from 05/02 demonstrates improving right sided infiltrate/effusion.
repeat CXT outpatient per pulmonary
Volume depletion -improved.
Mild traumatic rhabdomyolysis -down on the ground for quite some time before her found her. CPK trended down.
Hypokalemia -resolved.
Elevated transaminases -suspect muscle origin. Hold rosuvastatin. Normal GGT makes liver disease unlikely. LFTs trending down.
Hypothyroidism -elevated free T4 (2.45) noted. Levothyroxine dose reduced. Recheck TSH in 4 weeks.
DM2 without hyperglycemia -hold metformin. Hemoglobin A1c 7.3%. Low resistance NovoLog scale. Hold Mounjaro and metformin while in the hospital.
Essential hypertension -stable.
Hyperlipidemia -hold rosuvastatin given elevated LFTs.
Ambulatory dysfunction -anticipate SNF on discharge. Continue PT/OT.
Chronic insomnia -uses Lunesta at bedtime chronically. Family to bring in from home.
Full code
Dispo -SNF with abx
Anticipated Discharge: Today
Subjective/Interval History
-
Date of Service: May 06, 2024
denies pain
Objective Data
-
Labs:
Laboratory Results
05/06/24
06:16
WBC 18.2 H
Hgb 10.0 L
Hct 31.7 L
Plt Count 435 H D
Sodium 137
Potassium 4.4
Chloride 104
Carbon Dioxide 23
BUN 15
Creatinine 0.7
Glucose 126 H
Calcium 8.7
Total Bilirubin 0.2
AST 34
ALT 66 H
Alkaline Phosphatase 132 H
Vital Signs:
Vital Signs
Temp Pulse Resp BP Pulse Ox
98.3 F 71 18 129/62 96
05/06/24 07:00 05/06/24 07:00 05/06/24 07:00 05/06/24 07:00 05/06/24 07:00
I&O
05/05/24 05/06/24 05/07/24
06:59 06:59 06:59
Intake Total 1080 / 1080 990 / 990
Balance 1080 / 1080 990 / 990
[2024-05-06] MEDS: ROCEPHIN 2000 MG IV (11:24)
[2024-05-06] MEDS: STERILE WATER FOR INJECTION 20 ML IV (11:24)
[2024-05-06 12:01] LABS: Glucose - Point of Care 120 mg/dl (70-99)
[2024-05-06 12:02] VITALS: BP 126/58
== END 2024-05-06 12:51 | DRG 871 ==
LOC: 3 WEST ACU 13:09
PROVIDERS: Internal Medicine Critical Care Medicine; Physician Assistant; Radiology Vascular & Interventional Radiology; ADMITTING PHYSICIAN Hospitalist; ATTENDING PHYSICIAN Internal Medicine; CONSULT PHYSICIAN Internal Medicine Critical Care Medicine; EMERGENCY PHYSICIAN Emergency Medicine; FAMILY PHYSICIAN Internal Medicine; OTHER PHYSICIAN Student in an Organized Health Care Education/Training Program
PROC: 0W993ZX Drainage of Right Pleural Cavity, Percutaneous Approach, Diagnostic (ICD-10-PCS; 2024-04-30)
DX: A41.89 Other specified sepsis (principal); J18.9 Pneumonia, unspecified organism; J86.9 Pyothorax without fistula; J90 Pleural effusion, not elsewhere classified; N17.9 Acute kidney failure, unspecified; T79.6XXA Traumatic ischemia of muscle, initial encounter; E03.9 Hypothyroidism, unspecified; E11.9 Type 2 diabetes mellitus without complications; I10 Essential (primary) hypertension; E78.5 Hyperlipidemia, unspecified; F51.04 Psychophysiologic insomnia; Z79.82 Long term (current) use of aspirin; Z79.899 Other long term (current) drug therapy; Z79.84 Long term (current) use of oral hypoglycemic drugs; F41.9 Anxiety disorder, unspecified; W19.XXXA Unspecified fall, initial encounter; J40 Bronchitis, not specified as acute or chronic; I25.10 Atherosclerotic heart disease of native coronary artery without angina pectoris; J45.20 Mild intermittent asthma, uncomplicated; K21.9 Gastro-esophageal reflux disease without esophagitis; L71.9 Rosacea, unspecified; Z85.828 Personal history of other malignant neoplasm of skin; Z88.2 Allergy status to sulfonamides; E86.9 Volume depletion, unspecified; R74.01 Elevation of levels of liver transaminase levels; Y92.009 Unspecified place in unspecified non-institutional (private) residence as the place of occurrence of the external cause; R29.6 Repeated falls; G47.33 Obstructive sleep apnea (adult) (pediatric); Z11.52 Encounter for screening for COVID-19; Z98.61 Coronary angioplasty status
CPT/HCPCS: 88305; 10160; 70450; 71046; 71260; 72125; 72170; 73552; 76604; 77012; 80053; 81003; 81015; 82150; 82550; 82945; 82962; 82977; 83036; 83605; 83615; 83735; 83986; 84157; 84439; 84443; 84484; 85025; 85610; 86803; 87015; 87040; 87070; 87086; 87205; 87502; 87811; 88112; 88341; 88342; 89051; 92526; 92610; 93005; 96361; 96374; 97110; 97116; 97163; 97167; 97535; 99285; Q9967

== ENCOUNTER → 2024-06-19 10:56 | Outpatient (REF) | payer MEDICARE, BC, SELFPAY | LOC: HWWDC 10:56 | PROVIDERS: ATTENDING PHYSICIAN Nurse Practitioner Adult Health; FAMILY PHYSICIAN Internal Medicine | DX: J18.9 Pneumonia, unspecified organism (principal); Z12.31 Encounter for screening mammogram for malignant neoplasm of breast | CPT/HCPCS: 71250; 77063; 77067 ==

== ENCOUNTER → 2024-12-07 12:41 | Outpatient (REF) | payer MEDICARE, BC, SELFPAY | LOC: HWRAD 12:41 | PROVIDERS: ATTENDING PHYSICIAN Nurse Practitioner Adult Health; FAMILY PHYSICIAN Internal Medicine; REFERRING PHYSICIAN Internal Medicine Critical Care Medicine | DX: J47.9 Bronchiectasis, uncomplicated (principal); R91.1 Solitary pulmonary nodule | CPT/HCPCS: 71250; 93306 ==